=== PATIENT | male | born 1975 | race Caucasian/White ===

== ENCOUNTER 2017-03-25 10:47 | Emergency (ER) | payer OTHER ==
[~2017-03-25] VITALS: Ht 182.9 cm; Wt 79.2 kg
[2017-03-25 10:57] VITALS: TEMP 36.6; Ht 182.9 cm; Wt 79.2 kg
[2017-03-25] MEDS ORDERED: CEFTRIAXONE SOD INJ 1 GM ADDVIAL IV STA (11:16)
[2017-03-25] MEDS ORDERED: CLX40 PO (11:34)
[2017-03-25] MEDS ORDERED: RANI150T3 PO (11:34)
[2017-03-25] MEDS ORDERED: HYDR-5688 PO (11:34)
[2017-03-25] MEDS ORDERED: PRVC/40 PO (11:34)
[2017-03-25] MEDS ORDERED: NAPR-1007 PO (11:34)
[2017-03-25] MEDS ORDERED: ATR25 PO (11:34)
[2017-03-25] MEDS ORDERED: LISI40TA PO (11:34)
[2017-03-25 11:42] LABS: BASO % 0.3 %; BASO ABS # 0.02 K/uL (0-0.2); COMPLETE YES; EOS % 0.7 %; HEMATOCRIT 35.6 % (42-52); LYMPH % 20.9 %; MEAN CORPUSCULAR HEMOGLOBIN 32.5 pg (25-34); MEAN CORPUSCULAR HGB CONC 35.7 g/dl (32-36); MEAN PLATELET VOLUME 7.8 fL (7.4-10.4); MONO % 20.1 %; PLATELET COUNT 112 K/uL (130-400); RED BLOOD COUNT 3.91 M/uL (4.7-6.1); WHITE BLOOD COUNT 7.16 K/uL (4.8-10.8)
[2017-03-25 11:56] LABS: BLOOD UREA NITROGEN 6 mg/dl (7-18); BUN/CREATININE RATIO 11.6 (10-20); CALCIUM 9.3 mg/dl (8.5-10.1); CARBON DIOXIDE 26 mmol/L (21-32); CHLORIDE 91 mmol/L (98-107); CREATININE 0.54 mg/dl (0.60-1.40); GLUCOSE 77 mg/dl (70-99); POTASSIUM 4.4 mmol/L (3.5-5.1); SODIUM 125 mmol/L (136-145)
--- NOTE | 2017-03-25 12:52 | DIAGNOSTIC IMAGING REPORT ---
RIGHT SHOULDER MIN 2 VIEWS ROUTINE HISTORY: 41 years-old Male R shoulder injury 3 wks, R shoulder cellulitis w/ fever Right COMPARISON: None available TECHNIQUE: 3 views of the right shoulder FINDINGS: Mild degenerative changes are seen involving the right AC joint. There is no acute fracture or dislocation. No erosive changes are seen to suggest osteomyelitis. There is moderate soft tissue swelling noted about the shoulder without radiopaque foreign body. Imaged right lung field appears clear. IMPRESSION: 1. No acute fracture or dislocation. 2. Moderate soft tissue swelling about the shoulder. 3. Mild AC joint degenerative change. The above report was generated using voice recognition software. It may contain grammatical, syntax or spelling errors. Electronically signed by: Eliseo Peralta M.D. 03/25/2017 12:51 PM Dictated Date/Time: 03/25/2017 12:49 PM
[2017-03-25 12:55] VITALS: BP 127/88; PULSE 74; O2SAT 96
[2017-03-25 12:57] LABS: LYME DISEASE AB IGG NEG (NEG)
[2017-03-25 13:04] LABS: LYME DISEASE AB IGM NEG (NEG)
[2017-03-25] MEDS ORDERED: CEPH500C PO (13:07)
[2017-03-25] MEDS ORDERED: SULF800T23 PO (13:07)
--- NOTE | 2017-03-25 13:18 | EMERGENCY ROOM VISIT NOTE ---
History First contact with patient: 11:01 Chief Complaint: FEVER Stated Complaint: FEVER,REDNESS,SWELLING TO SHOULDER-WORK REL. History of Present Illness The patient is a 41 year old male who presents to the Emergency Room with complaints of a right shoulder injury at work 3 weeks ago, and creasing pain, redness and fever over the past 12 hours. The patient is not exactly certain of his date of injury. He did not tell his employer of the shoulder pain. He does do a lot of heavy lifting at work. The patient had persistent pain, he was seen by his PCP approximately 2 weeks ago and had an x-ray performed. When his symptoms still did not improve, his Worker's Compensation carrier told him that they would not recognize his family doctor's workup, and that he would need to go to the [facility] urgent care center for evaluation. He was provided a prescription for naproxen, prednisone and hydrocodone. He was then referred to another Worker's Compensation physician with an appointment scheduled this coming Tuesday at 9:30 AM. The patient noticed redness of the shoulder with a fever of 101.1F this morning, and elected to come to the emergency department for further evaluation. He did take hydrocodone this morning because of the pain, and currently rates his discomfort a 5 out of 10. Review of Systems HEENT: Denies dizziness, visual problems, hearing loss, tinnitus. Denies difficulty swallowing or oral lesions. PULMONARY: Denies cough, shortness of breath, sputum production or hemoptysis. CARDIOVASCULAR: Denies chest pain, palpitations, dyspnea on exertion, orthopnea or peripheral edema. GASTROINTESTINAL: Denies diarrhea, constipation, nausea, vomiting, or abdominal pain. GENITOURINARY: Denies dysuria, frequency, urgency or nocturia. NEUROLOGIC: Denies history of epilepsy, CVA, TIA or chronic headaches. MUSCULOSKELETAL: Denies history of joint tenderness/swelling. SKIN: Denies rashes or lesions. PSYCHIATRIC: Denies history of depression or mental illness. ENDOCRINE: Denies history of diabetes or thyroid disorders. Past Medical/Surgical History Medical Problems: (1) No significant past medical history Surgical Problems: (1) No history of previous surgery Family History Unremarkable Social History Smoking Status: Never Smoker Alcohol Use: occasionally Marital Status: Occupation Status: employed Current/Historical Medications Scheduled Cephalexin Monohydrate (Keflex), 500 MG PO QID Citalopram (Citalopram Hydrobromide), 40 MG PO DAILY Lisinopril (Zestril), 40 MG PO DAILY Naproxen Sodium (Naproxen Sodium), 500 MG PO BID Pravastatin Sod (Pravastatin Sodium), 40 MG PO DAILY Ranitidine Hcl (Zantac), 150 MG PO BID Sulfa/Trimethoprim (Bactrim Ds 800MG/160MG), 1 TAB PO BID Scheduled PRN Hydrocodone/Acetaminophen 5MG/325MG ([place] 5MG/325MG), 1 TABLET PO Q4 PRN for Pain Hydroxyzine HCl (Hydroxyzine HCl), 25 MG PO Q6 PRN for Anxiety Physical Exam Vital Signs Date Time Temp Pulse Resp B/P (MAP) Pulse Ox O2 Delivery O2 Flow Rate FiO2 03/25/17 12:55 74 16 127/88 96 Room Air 03/25/17 10:57 36.6 74 16 145/90 97 Room Air Physical Exam CONSTITUTIONAL: Healthy and well nourished. Alert and oriented X 3 with positive affect. The patient appears in moderate discomfort. HEENT: Normocephalic, atraumatic. Pupils equal, round and reactive. NECK: Full active range of motion without discomfort. RESPIRATORY: Clear to auscultation bilaterally with no wheezing, crackles, rhonchi or stridor. CARDIOVASCULAR: Regular rate and rhythm with no murmurs, rubs or gallops. GASTROINTESTINAL: Bowel sounds present in all quadrants. Abdomen is soft and nontender to palpation. MUSCULOSKELETAL: Examination shows erythema and mild edema over the right anterior shoulder/clavicle region. It is notably tender across the distal clavicle and acromioclavicular joint. Gentle internal and external rotation does not significant worsening discomfort. He has no tenderness to palpation through the bicipital groove or biceps tendon. Any attempted range of motion beyond approximately 45 of abduction and forward flexion worsens his discomfort over the distal clavicle region. Distal pulses are intact. LYMPHATICS: No axillary adenopathy appreciated. INTEGUMENTARY: No rash or other significant dermatologic conditions noted. NEUROLOGIC: No focal neurologic deficits noted. Right deltoid sensation is intact. Medical Decision & Procedures ER Provider Diagnostic Interpretation: My interpretation of right shoulder x-rays does not show any acute fractures or dislocation. Radiologist report is as follows: RIGHT SHOULDER MIN 2 VIEWS ROUTINE HISTORY: 41 years-old Male R shoulder injury 3 wks, R shoulder cellulitis w/ fever Right COMPARISON: None available TECHNIQUE: 3 views of the right shoulder FINDINGS: Mild degenerative changes are seen involving the right AC joint. There is no acute fracture or dislocation. No erosive changes are seen to suggest osteomyelitis. There is moderate soft tissue swelling noted about the shoulder without radiopaque foreign body. Imaged right lung field appears clear. IMPRESSION: 1. No acute fracture or dislocation. 2. Moderate soft tissue swelling about the shoulder. 3. Mild AC joint degenerative change. Laboratory Results 03/25/17 11:30 Red Blood Count 3.91, Mean Corpuscular Volume 91.0, Mean Corpuscular Hemoglobin 32.5, Mean Corpuscular Hemoglobin Concent 35.7, Mean Platelet Volume 7.8, Neutrophils (%) (Auto) 56.0, Lymphocytes (%) (Auto) 20.9, Monocytes (%) (Auto) 20.1, Eosinophils (%) (Auto) 0.7, Basophils (%) (Auto) 0.3, Neutrophils # (Auto ) 4.01, Lymphocytes # (Auto) 1.50, Monocytes # (Auto) 1.44, Eosinophils # (Auto ) 0.05, Basophils # (Auto) 0.02 03/25/17 11:30 Test 03/25/17 11:30 White Blood Count 7.16 K/uL (4.8-10.8) Red Blood Count 3.91 M/uL (4.7-6.1) Hemoglobin 12.7 g/dL (14.0-18.0) Hematocrit 35.6 % (42-52) Mean Corpuscular Volume 91.0 fL (80-100) Mean Corpuscular Hemoglobin 32.5 pg (25-34) Mean Corpuscular Hemoglobin Concent 35.7 g/dl (32-36) Platelet Count 112 K/uL (130-400) Mean Platelet Volume 7.8 fL (7.4-10.4) Neutrophils (%) (Auto) 56.0 % Lymphocytes (%) (Auto) 20.9 % Monocytes (%) (Auto) 20.1 % Eosinophils (%) (Auto) 0.7 % Basophils (%) (Auto) 0.3 % Neutrophils # (Auto) 4.01 K/uL (1.4-6.5) Lymphocytes # (Auto) 1.50 K/uL (1.2-3.4) Monocytes # (Auto) 1.44 K/uL (0.11-0.59) Eosinophils # (Auto) 0.05 K/uL (0-0.5) Basophils # (Auto) 0.02 K/uL (0-0.2) RDW Standard Deviation 46.7 fL (36.4-46.3) RDW Coefficient of Variation 14.0 % (11.5-14.5) Immature Granulocyte % (Auto) 2.0 % Immature Granulocyte # (Auto) 0.14 K/uL (0.00-0.02) Erythrocyte Sedimentation Rate 67 mm/hr (0-14) Anion Gap 8.0 mmol/L (3-11) Est Creatinine Clear Calc Drug Dose 199.6 ml/min Estimated GFR () > 150.0 Estimated GFR (Non- 131.3 BUN/Creatinine Ratio 11.6 (10-20) Calcium Level 9.3 mg/dl (8.5-10.1) C-Reactive Protein 17.20 mg/dl (0-0.29) Lyme Disease IgG Antibody NEG (NEG) Lyme Disease IgM Antibody NEG (NEG) The above labs were reviewed. Sedimentation rate and C-reactive protein are elevated. White count is normal. Lyme screen is negative. Sodium is 125. Medications Administered Medications (Trade) Dose Ordered Sig/Oksana Route Start Time Stop Time Status Last Admin Dose Admin Ceftriaxone Sodium (Rocephin Inj) 1 gm NOW STAT IV 03/25/17 11:16 03/25/17 11:18 DC 03/25/17 11:28 1 GM Procedure IV medications: Rocephin 1 g IV infusion ED Course Patient history and physical exam were performed. Nurse's notes were reviewed. Vital signs were reviewed. The patient is currently afebrile and with normal heart rate. Blood pressure is mildly elevated at 145/90, and O2 saturation is 97% on room air. The patient does appear in moderate discomfort, however he refused any analgesics. The patient does have anterior shoulder erythema consistent with a cellulitis. Because he has had a fever, I did suggest performing additional laboratory studies, and the patient was in agreement. IV access was established, and labs were drawn. Review of labs shows hyponatremia with a sodium of 125. Sedimentation rate and CRP are also elevated, and remaining labs are normal. Lyme screen is negative. X-rays of the right shoulder were also normal. The case was further discussed with Dr. Florentino, ED attending physician, who suggested blood cultures and hospitalist consultation. When I discussed this with the patient, he refused admission. He requested oral antibiotics, and will follow-up with his orthopedic surgeon as already scheduled on Tuesday. The patient reports that he has been asked in the past by his family doctor if he drinks a lot of water at work. I suspect that the patient may have a history of chronic hyponatremia. He does admit to significant alcohol consumption as well. The patient was administered Rocephin 1 g IV infusion while in the emergency department. Although the patient is refusing admission, he was instructed to return to the emergency department for any progressively worsening swelling, redness, pain or worsening fever. He was also instructed to follow-up with his PCP regarding his hyponatremia. He was also advised that his blood pressure was elevated while in the emergency department, and encouraged to have his family doctor recheck his blood pressure as well. The patient was happy with plan of care, voiced understanding of all discharge instructions, and rated his pain a 3 out of 10 at the time of discharge. The patient admits that he did take one of his hydrocodone tablets while in the emergency department. Medical Decision See previous section Medication Reconcilliation Current Medication List: was personally reviewed by me Blood Pressure Screening Patient's blood pressure: Elevated blood pressure Blood pressure disposition: Referred to PCP Impression Primary Impression: Right shoulder cellulitis Additional Impressions: Hyponatremia Elevated blood pressure reading Departure Information Prescriptions Sulfa/Trimethoprim (Bactrim Ds 800MG/160MG) Tab 1 TAB PO BID, #14 TAB Prov: Adilson Schwartz PA 03/25/17 Cephalexin Monohydrate (Keflex) 500 Mg Cap 500 MG PO QID for 7 Days, #28 CAP Prov: Adilson Schwartz PA 03/25/17 Referrals No Doctor, Assigned (PCP) Patient Instructions My [facility] Problem Qualifiers
[2017-05-24] MEDS ORDERED: DXY100 PO (17:03)
[2017-05-24] MEDS ORDERED: LPR25 PO (17:03)
[2017-05-24] MEDS ORDERED: NRN600 PO (17:05)
== END 2017-03-25 13:23 | disposition home or self-care (01) ==
LOC: C.EDB 10:50 → C.EDA 13:23
DX: L03.113 Cellulitis of right upper limb (principal); E87.1 Hypo-osmolality and hyponatremia; R03.0 Elevated blood-pressure reading, without diagnosis of hypertension; S49.91XA Unspecified injury of right shoulder and upper arm, initial encounter; X58.XXXA Exposure to other specified factors, initial encounter; Y99.0 Civilian activity done for income or pay

== ENCOUNTER → 2017-05-13 | Outpatient (CLI) | payer BC ==
[~2017-05-13] MED LIST: ATR25 PO; CLX40 PO; DXY100 PO; HYDR-5688 PO; LISI40TA PO; LPR25 PO; MTR600X PO; NAPR-1007 PO; NRN600 PO; OPTIRAY 320 IV PRN; PRVC/40 PO; RANI150T3 PO; SULF800T23 PO
--- NOTE | 2017-05-13 09:13 | DIAGNOSTIC IMAGING REPORT ---
CT OF THE RIGHT SHOULDER WITH CONTRAST CLINICAL HISTORY: Septic arthritis of shoulder. Evaluate for abscess. COMPARISON STUDY: Right shoulder radiographs March 25, 2017. TECHNIQUE: Axial images of the right shoulder were obtained following intravenous injection of 120 cc of Optiray 320 IV. Sagittal and coronal reconstructions were viewed. FINDINGS: Visualized portions of the right lung are clear. There is no significant abnormality of the right glenohumeral joint by CT. Note is made of bony erosion of the distal right clavicle and the adjacent acromion suggestive of osteomyelitis. This has developed since radiographs of March 25, 2017. There is adjacent infiltration. Note is made of a rim-enhancing 2 cm x 1.1 cm fluid collection located anterior superior to the acromioclavicular joint. This is located within the clavicular part of the right deltoid muscle. A small rim-enhancing fluid collection is noted within the acromioclavicular joint as well. There is no evidence for a glenohumeral joint effusion. IMPRESSION: Septic arthritis of the right acromioclavicular joint with osteomyelitis of the distal right clavicle and adjacent acromion. Associated periarticular 2 cm x 1 cm intramuscular abscess within the deltoid muscle, located anterior superior to the acromioclavicular joint. Additional smaller periarticular abscess and small intra-articular abscess. Associated soft tissue swelling. Discussed with Dr. Hernandez at time of dictation. Electronically signed by: Markos Espinosa M.D. 05/13/2017 9:12 AM Dictated Date/Time: 05/13/2017 8:49 AM
== END | disposition home or self-care (01) ==
LOC: C.CTS 08:09
PROVIDERS: ATTEND Internal Medicine Infectious Disease
DX: M86.9 Osteomyelitis, unspecified (principal); L02.413 Cutaneous abscess of right upper limb; M00.811 Arthritis due to other bacteria, right shoulder

== ENCOUNTER 2017-05-19 17:07 | Inpatient (IN) | payer BC ==
[~2017-05-19] VITALS: Ht 182.9 cm; Wt 75.2 kg
[~2017-05-19 17:07] MED LIST changes: -DXY100 PO; -LPR25 PO; -MTR600X PO; -NRN600 PO; -OPTIRAY 320 IV PRN
[2017-05-19] MEDS ORDERED: SODIUM CHLORIDE 0.9% 1000ML 1,000 ML IV STA (18:03)
[2017-05-19] MEDS ORDERED: CEFTRIAXONE SOD INJ 1 GM ADDVIAL IV STA (18:03)
[2017-05-19] MEDS ORDERED: VANCOMYCIN 1GM/270ML NSS IV STA (18:03)
[2017-05-19] MEDS ORDERED: LORAZEPAM 2 MG/ML 1 ML VIAL IV STA (18:19)
--- NOTE | 2017-05-19 18:27 | EMERGENCY ROOM VISIT NOTE ---
History First contact with patient: 17:50 Chief Complaint: WOUND INFECTION Stated Complaint: INFECTED RT SHOULDER- PHYSICIAN REFERRED Nursing Triage Summary: pt has been doctoring with Dr Hernandez for a R shoulder infection for about 2 months, sent to er by Dr Hernandez to have his R shoulder drained, pt states a radiologist is to see him to drain it History of Present Illness The patient is a 41 year old male who presents to the Emergency Room with complaints of right shoulder infection. The patient states that he was sent by Dr. Hernandez to have an abscess in his right shoulder drained. The patient states that he has been dealing with an infection in his right shoulder for approximately 2 months. He had a CT scan done 6 days ago. He states that Dr. Hernandez contacted him and encouraged him to come to the emergency department to have an abscess in his shoulder drained. The patient states he has had ongoing fevers with this. He has pain in the right shoulder which he rates a 1/10. He reports a shoulder injury but denies any injections or any surgery on the shoulder. I discussed the case with Dr. Hernandez. He states that a CT scan from 6 days ago revealed an abscess in the shoulder. He spoke with radiology but they stated it was too superficial for them to do through interventional radiology. He suggested the patient come to the emergency department to have it drained. I reviewed the CT imaging. It is intra-articular and intramuscular. It is not easily visible superficially. He recommends admission to the hospital, vancomycin, Rocephin and consultation with orthopedics. Review of Systems A 10 system review of systems was completed with positives and pertinent negatives listed in the HPI. Past Medical/Surgical History Medical Problems: (1) No significant past medical history Surgical Problems: (1) No history of previous surgery Social History Smoking Status: Never Smoker Alcohol Use: occasionally Marital Status: Occupation Status: employed Current/Historical Medications Scheduled Citalopram (Citalopram Hydrobromide), 40 MG PO DAILY Lisinopril (Zestril), 40 MG PO DAILY Naproxen Sodium (Naproxen Sodium), 500 MG PO BID Pravastatin Sod (Pravastatin Sodium), 40 MG PO DAILY Ranitidine Hcl (Zantac), 150 MG PO BID Sulfa/Trimethoprim (Bactrim Ds 800MG/160MG), 1 TAB PO BID Physical Exam Vital Signs Date Time Temp Pulse Resp B/P (MAP) Pulse Ox O2 Delivery O2 Flow Rate FiO2 05/19/17 17:40 37.6 86 18 157/102 100 Room Air Physical Exam VITALS: Vitals are noted on the nurse's note and reviewed by myself. Vital signs stable. The patient is febrile with a temperature of 37.6C. GENERAL: This is a 41-year-old male, in no acute distress, nondiaphoretic, well- developed well-nourished. SKIN: There is mild erythema overlying the right acromioclavicular joint. There is no tenting of the skin. Capillary reflex less than 2 seconds. HEAD: Normocephalic atraumatic. EARS: The external ears are normal in appearance. EYES: Pupils equal round and reactive to light and accommodation. Conjunctivae without injection, sclerae without icterus. Extraocular movements intact. NOSE: Patent, turbinates without inflammation or discharge. MOUTH: Mucous membranes moist. Tonsils are not enlarged. Pharynx without erythema or exudate. Uvula midline. Airway patent. Tongue does not deviate. NECK: Supple without nuchal rigidity. No JVD. HEART: Regular rate and rhythm without murmurs gallops or rubs. LUNGS: Clear to auscultation bilaterally without wheezes, rales or rhonchi. No retractions or accessory muscle use. MUSCULOSKELETAL: No muscle atrophy,noted. There is minimal tenderness to palpation over the right shoulder joint. Range of motion is intact. Strength 5 /5 throughout. NEURO: Patient was alert and oriented to person place and time. No focal neurological deficits. Medical Decision & Procedures ER Provider Diagnostic Interpretation: [~ rep ct add3]] CT OF THE RIGHT SHOULDER WITH CONTRAST CLINICAL HISTORY: Septic arthritis of shoulder. Evaluate for abscess. COMPARISON STUDY: Right shoulder radiographs March 25, 2017. TECHNIQUE: Axial images of the right shoulder were obtained following intravenous injection of 120 cc of Optiray 320 IV. Sagittal and coronal reconstructions were viewed. FINDINGS: Visualized portions of the right lung are clear. There is no significant abnormality of the right glenohumeral joint by CT. Note is made of bony erosion of the distal right clavicle and the adjacent acromion suggestive of osteomyelitis. This has developed since radiographs of March 25, 2017. There is adjacent infiltration. Note is made of a rim-enhancing 2 cm x 1.1 cm fluid collection located anterior superior to the acromioclavicular joint. This is located within the clavicular part of the right deltoid muscle. A small rim-enhancing fluid collection is noted within the acromioclavicular joint as well. There is no evidence for a glenohumeral joint effusion. IMPRESSION: Septic arthritis of the right acromioclavicular joint with osteomyelitis of the distal right clavicle and adjacent acromion. Associated periarticular 2 cm x 1 cm intramuscular abscess within the deltoid muscle, located anterior superior to the acromioclavicular joint. Additional smaller periarticular abscess and small intra-articular abscess. Associated soft tissue swelling. Discussed with Dr. Hernandez at time of dictation. Laboratory Results 05/19/17 18:20 Red Blood Count 3.92, Mean Corpuscular Volume 90.3, Mean Corpuscular Hemoglobin 32.9, Mean Corpuscular Hemoglobin Concent 36.4, Mean Platelet Volume 8.1, Neutrophils (%) (Auto) 60.4, Lymphocytes (%) (Auto) 21.4, Monocytes (%) (Auto) 14.9, Eosinophils (%) (Auto) 2.1, Basophils (%) (Auto) 0.6, Neutrophils # (Auto ) 2.91, Lymphocytes # (Auto) 1.03, Monocytes # (Auto) 0.72, Eosinophils # (Auto ) 0.10, Basophils # (Auto) 0.03 05/19/17 18:20 Test 05/19/17 18:20 05/19/17 20:02 White Blood Count 4.82 K/uL (4.8-10.8) Red Blood Count 3.92 M/uL (4.7-6.1) Hemoglobin 12.9 g/dL (14.0-18.0) Hematocrit 35.4 % (42-52) Mean Corpuscular Volume 90.3 fL (80-100) Mean Corpuscular Hemoglobin 32.9 pg (25-34) Mean Corpuscular Hemoglobin Concent 36.4 g/dl (32-36) Platelet Count 152 K/uL (130-400) Mean Platelet Volume 8.1 fL (7.4-10.4) Neutrophils (%) (Auto) 60.4 % Lymphocytes (%) (Auto) 21.4 % Monocytes (%) (Auto) 14.9 % Eosinophils (%) (Auto) 2.1 % Basophils (%) (Auto) 0.6 % Neutrophils # (Auto) 2.91 K/uL (1.4-6.5) Lymphocytes # (Auto) 1.03 K/uL (1.2-3.4) Monocytes # (Auto) 0.72 K/uL (0.11-0.59) Eosinophils # (Auto) 0.10 K/uL (0-0.5) Basophils # (Auto) 0.03 K/uL (0-0.2) RDW Standard Deviation 44.8 fL (36.4-46.3) RDW Coefficient of Variation 13.6 % (11.5-14.5) Immature Granulocyte % (Auto) 0.6 % Immature Granulocyte # (Auto) 0.03 K/uL (0.00-0.02) Anion Gap 11.0 mmol/L (3-11) Est Creatinine Clear Calc Drug Dose 135.9 ml/min Estimated GFR () 130.2 Estimated GFR (Non- 112.3 BUN/Creatinine Ratio 8.2 (10-20) Lactic Acid Level 1.6 mmol/L (0.4-2.0) Calcium Level 9.8 mg/dl (8.5-10.1) Total Bilirubin 0.8 mg/dl (0.2-1) Aspartate Amino Transf (AST/SGOT) 52 U/L (15-37) Alanine Aminotransferase (ALT/SGPT) 50 U/L (12-78) Alkaline Phosphatase 60 U/L (45-117) C-Reactive Protein < 0.29 mg/dl (0-0.29) Total Protein 8.8 gm/dl (6.4-8.2) Albumin 4.5 gm/dl (3.4-5.0) Globulin 4.3 gm/dl (2.5-4.0) Albumin/Globulin Ratio 1.0 (0.9-2) Medications Administered Medications (Trade) Dose Ordered Sig/Oksana Route Start Time Stop Time Status Last Admin Dose Admin Ceftriaxone Sodium (Rocephin Inj) 1 gm NOW STAT IV 05/19/17 18:03 05/19/17 18:06 DC 05/19/17 20:12 1 GM Sodium Chloride 1,000 ml @ 999 mls/hr Q1H1M STAT IV 05/19/17 18:03 05/19/17 19:03 DC 05/19/17 19:17 999 MLS/HR Lorazepam (Ativan Inj) 1 mg NOW STAT IV 05/19/17 18:19 05/19/17 18:20 DC 05/19/17 18:36 1 MG Vancomycin HCl (Vancomycin 1gm/ 270ml Nss) 1 gm STK-MED ONCE .ROUTE 05/19/17 20:30 05/19/17 20:31 DC 05/19/17 20:41 1 GM ED Course The patient was seen and examined. Previous visits were reviewed. The patient had a low-grade fever. He does not have a leukocytosis. Sedimentation rate and CRP are pending. Lactic acid was not elevated. Blood cultures are pending. CT imaging that was performed 6 days ago was reviewed as above IV vancomycin and IV Rocephin was initially ordered but held until the aspiration was performed by orthopedics The patient was given 1 mg IV Ativan as he has significant anxiety I initially discussed the case with Dr. Hernandez. He recommends IV antibiotics, vancomycin and Rocephin, aspiration, orthopedic consultation and admission to the hospital. I discussed the case with Dr. cSales. He evaluated the patient in the emergency department. He performed an aspiration. Please see his dictation for details. Cultures were ordered. I discussed the [facility] with the [facility] and they will evaluate the patient for medical admission. The case was discussed with Dr. Burks who agrees with the assessment and treatment plan Medical Decision The differential diagnosis includes septic arthritis, abscess, sepsis, among others Blood Pressure Screening Patient's blood pressure: Elevated blood pressure Blood pressure disposition: Elevated BP felt to be situational Impression Primary Impression: Septic arthritis of AC joint Additional Impression: Abscess of shoulder Departure Information Dispostion Admitted as an inpatient Referrals No Doctor, Assigned (PCP) Forms WORK / SCHOOL INSTRUCTIONS, HOME CARE DOCUMENTATION FORM, IMPORTANT VISIT INFORMATION Patient Instructions [facility] Problem Qualifiers
[2017-05-19 18:47] LABS: BASO % 0.6 %; BASO ABS # 0.03 K/uL (0-0.2); COMPLETE YES; EOS % 2.1 %; HEMATOCRIT 35.4 % (42-52); IG% 0.6 %; LYMPH % 21.4 %; LYMPH ABS # 1.03 K/uL (1.2-3.4); MEAN CELL VOLUME 90.3 fL (80-100); MEAN CORPUSCULAR HEMOGLOBIN 32.9 pg (25-34); MEAN CORPUSCULAR HGB CONC 36.4 g/dl (32-36); MEAN PLATELET VOLUME 8.1 fL (7.4-10.4); MONO % 14.9 %; NEUT % 60.4 %; PLATELET COUNT 152 K/uL (130-400); RED BLOOD COUNT 3.92 M/uL (4.7-6.1); WHITE BLOOD COUNT 4.82 K/uL (4.8-10.8)
[2017-05-19 19:02] LABS: ALT/SGPT 50 U/L (12-78); AST/SGOT 52 U/L (15-37); BLOOD UREA NITROGEN 7 mg/dl (7-18); BUN/CREATININE RATIO 8.2 (10-20); CALCIUM 9.8 mg/dl (8.5-10.1); CARBON DIOXIDE 24 mmol/L (21-32); CHLORIDE 91 mmol/L (98-107); CREATININE 0.79 mg/dl (0.60-1.40); GLUCOSE 78 mg/dl (70-99); POTASSIUM 3.9 mmol/L (3.5-5.1); SODIUM 126 mmol/L (136-145)
[2017-05-19 19:05] LABS: ALKALINE PHOSPHATASE 60 U/L (45-117)
[2017-05-19] MEDS ORDERED: ETHYL CHLORIDE AER PER SPRAY 100 ML CAN ONE (19:29)
[2017-05-19] MEDS ORDERED: VANCOMYCIN 1GM/270ML NSS ONE (20:30)
[2017-05-19 20:35] LABS: C-REACTIVE PROTEIN < 0.29 mg/dl (0-0.29)
[2017-05-19] MEDS ORDERED: MTR600X PO (21:35)
[2017-05-19] MEDS ORDERED: ONDANSETRON INJ 2 MG/ML 2 ML VIAL IV PRN (21:45)
[2017-05-19] MEDS ORDERED: METOPROLOL TARTRATE 50 MG TAB PO STA (21:52)
[2017-05-19] MEDS ORDERED: IBUPROFEN 600 MG TAB PO PRN (22:00)
[2017-05-19] MEDS ORDERED: LORAZEPAM 2 MG/ML 1 ML VIAL IV PRN (22:00)
[2017-05-19] MEDS ORDERED: VANCOMYCIN CONSULT ACTIVE PRN (22:00)
[2017-05-19] MEDS: HEPARIN SOD 5000 UNIT/0.5 ML CARP SQ SCH (22:00)
--- NOTE | 2017-05-19 22:51 | History and Physical ---
History & Physical Date & Time of Service: May 19, 2017 at 22:00 Chief Complaint: Infected Rt Shoulder- Physician Referred Primary Care Physician: Mahamed Becerra M.D. History of Present Illness Source: patient, spouse, clinic records, hospital records This is a 41 y/o male with PMH of HTN, HL, anxiety, alcohol use, hyponatremia, and other problems listed below who presents to the ED for right shoulder infection. 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 No skin puncture/ open wound. Has been seen by PCP (03/16- given prednisone course), [facility] (03/25 after joint became red, hot and swollen - treated with Rocephin injection then PO Bactrim and Keflex course for cellulitis), [facility] (03/28- noted to have severe hyponatremia, blood alcohol of 40, drug screen + for amphetamines), [facility], and Dr. Hernandez (prescribed Bactrim). Patient had a CT scan on Tuesday which showed R shoulder abscess. Pt states erythema and swelling improved with initial antibiotics, but symptoms returned. He is currently taking Bactrim prescribed by Dr. Hernandez with partial improvement. He had fever/chills weeks ago (Tmax 101 F) , but not over past several days. Pain is controlled. Taking ibuprofen PRN at home. He states stool is loose but formed 1-2x per day since being on antibiotics. He felt anxious on presentation to ER which improved with IV Ativan. Patient drinks 6 beers per day. He reports excess water intake which he is trying to cut down on and replace with Gatorade. He is eating well and trying to increase sodium intake. He denies dizziness, tremor, numbness, weakness, chest pain, SOB, abdominal pain, N/V, UTI symptoms. No hx of shoulder surgery. Denies hx of alcohol withdrawal or seizure. Past Medical/Surgical History Medical Problems: (1) ISADORA (generalized anxiety disorder) Status: Chronic (2) GERD (gastroesophageal reflux disease) Status: Chronic (3) HTN (hypertension) Status: Chronic (4) Hyperlipidemia Status: Chronic Surgical Problems: (1) S/P anal fissurectomy Status: Chronic (2) S/P tonsillectomy and adenoidectomy Status: Chronic Family History Hypertension FATHER Social History Smoking Status: Never Smoker Smokeless Tobacco Use: Yes (2 can per day) Alcohol Use: heavy (6 beers per day. last drink was today- had 1 beer [employer]. last drink before that was last night (approx 6 beers). 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 Physical Exam Vital Signs Date Time Temp Pulse Resp B/P (MAP) Pulse Ox O2 Delivery O2 Flow Rate FiO2 05/19/17 17:40 37.6 86 18 157/102 100 Room Air General Appearance: WD/WN, no apparent distress, + pertinent finding (alert cooperative 41 year old male, lying in bed, at bedside) Head: normocephalic, atraumatic Eyes: PERRL, sclerae normal ENT: hearing grossly normal, pharynx normal Neck: supple, trachea midline Respiratory/Chest: lungs clear, normal breath sounds, no respiratory distress, no accessory muscle use Cardiovascular: regular rate, rhythm, no murmur Abdomen/GI: normal bowel sounds, non tender, soft Extremities/Musculoskelatal: no calf tenderness, no pedal edema, + pertinent finding (no pain with passive rotation of R shoulder. R shoulder adduction and abduction 5/5) Neurologic/Psych: alert, normal mood/affect, oriented x 3, + pertinent finding (sensation to light touch grossly intact RUE. no tremor. ) Skin: normal color, warm/dry, + pertinent finding (right shoulder dressing in place s/p joint aspiration. no significant erythema or swelling extending past the dressing. ) Diagnostics Laboratory Results Results Past 24 Hours Test 05/19/17 18:20 05/19/17 21:47 Range/Units White Blood Count 4.82 4.8-10.8 K/uL Red Blood Count 3.92 4.7-6.1 M/uL Hemoglobin 12.9 14.0-18.0 g/dL Hematocrit 35.4 42-52 % Mean Corpuscular Volume 90.3 80-100 fL Mean Corpuscular Hemoglobin 32.9 25-34 pg Mean Corpuscular Hemoglobin Concent 36.4 32-36 g/dl Platelet Count 152 130-400 K/uL Mean Platelet Volume 8.1 7.4-10.4 fL Neutrophils (%) (Auto) 60.4 % Lymphocytes (%) (Auto) 21.4 % Monocytes (%) (Auto) 14.9 % Eosinophils (%) (Auto) 2.1 % Basophils (%) (Auto) 0.6 % Neutrophils # (Auto) 2.91 1.4-6.5 K/uL Lymphocytes # (Auto) 1.03 1.2-3.4 K/uL Monocytes # (Auto) 0.72 0.11-0.59 K/uL Eosinophils # (Auto) 0.10 0-0.5 K/uL Basophils # (Auto) 0.03 0-0.2 K/uL RDW Standard Deviation 44.8 36.4-46.3 fL RDW Coefficient of Variation 13.6 11.5-14.5 % Immature Granulocyte % (Auto) 0.6 % Immature Granulocyte # (Auto) 0.03 0.00-0.02 K/uL Erythrocyte Sedimentation Rate 21 0-14 mm/hr Sodium Level 126 136-145 mmol/L Potassium Level 3.9 3.5-5.1 mmol/L Chloride Level 91 98-107 mmol/L Carbon Dioxide Level 24 21-32 mmol/L Anion Gap 11.0 3-11 mmol/L Blood Urea Nitrogen 7 7-18 mg/dl Creatinine 0.79 0.60-1.40 mg/dl Est Creatinine Clear Calc Drug Dose 135.9 ml/min Estimated GFR () 130.2 Estimated GFR (Non- 112.3 BUN/Creatinine Ratio 8.2 10-20 Random Glucose 78 70-99 mg/dl Lactic Acid Level 1.6 0.4-2.0 mmol/L Calcium Level 9.8 8.5-10.1 mg/dl Total Bilirubin 0.8 0.2-1 mg/dl Aspartate Amino Transf (AST/SGOT) 52 15-37 U/L Alanine Aminotransferase (ALT/SGPT) 50 12-78 U/L Alkaline Phosphatase 60 45-117 U/L C-Reactive Protein < 0.29 0-0.29 mg/dl Total Protein 8.8 6.4-8.2 gm/dl Albumin 4.5 3.4-5.0 gm/dl Globulin 4.3 2.5-4.0 gm/dl Albumin/Globulin Ratio 1.0 0.9-2 Microbiology Results 05/19/17 Blood Culture, Received Pending 05/19/17 Blood Culture, Received Pending 05/19/17 Gram Stain - Final, Resulted 05/19/17 Bacterial Culture, Resulted Pending Diagnostic Radiology OUTPATIENT CT OF THE RIGHT SHOULDER WITH CONTRAST (05/13/17) IMPRESSION: Septic arthritis of the right acromioclavicular joint with osteomyelitis of the distal right clavicle and adjacent acromion. Associated periarticular 2 cm x 1 cm intramuscular abscess within the deltoid muscle, located anterior superior to the acromioclavicular joint. Additional smaller periarticular abscess and small intra-articular abscess. Associated soft tissue swelling. Discussed with Dr. Hernandez at time of dictation. Impression Assessment and Plan 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 Hernandez after CT on 05/13/17 Low grade temp of 37.6 C in ER, no leukocytosis, no sepsis Consult Dr. Hernandez who was contacted by ER provider- recommended joint aspiration , IV vancomycin and Rocephin Consult ortho- Dr. Scales aspirated joint in ER Blood cultures pending; synovial fluid gram stain- moderate polys, no organisms , culture pending Continue Vancomycin and Rocephin started in ER PRN ibuprofen for pain control CHRONIC HYPONATREMIA Na+ is 126 (was low as 119 on 03/28/17 -> 126 on 04/12/17) Likely secondary to beer drinking, excess water intake, and lisinopril Check urine osmolality Hold lisinopril, fluid restriction, received 1 liter NSS in ER Recheck PRP in am HYPERTENSION BP elevated in ER- improved on repeat Hold lisinopril due to hyponatremia Add metoprolol tartrate 25 mg BID ALCOHOL USE Monitor for withdrawal Banana bag and daily thiamine supplement Gabapentin and PRN Ativan per protocol Check thiamine, folic acid, urine drug screen LOOSE STOOLS Reports loose but formed stools 1-2x per day since being on antibiotics If develops liquid stool would test for C. diff ANXIETY Continue citalopram HYPERLIPIDEMIA Continue statin GERD Continue Zantac DVT PROPHYLAXIS Heparin SQ for ease of holding in case ortho procedure is needed FULL CODE DISPOSITION Admission telemetry due to hyponatremia, anticipating possible alcohol withdrawal Follows with Dr. Becerra for primary care Patient seen in collaboration with Dr. Rios. Please see his addendum. VTE Prophylaxis VTE Risk Assessment Done? Y/N: Yes Risk Level: Moderate Given or contraindicated: Unfractionated heparin SQ Note ATTENDING ADDENDUM Record reviewed. Patient interviewed and examined in ED. Care coordinated with Elizabeth Crenshaw PA-C. Please refer to her documentation for patient's history. Briefly, 41 YO male with right shoulder pain. CT 05/13 consistent with septic arthritis right acromioclavicular joint, osteomyelitis right distal clavicle, periarticular abscesses. EXAM: General- no acute distress VS- as noted Extremities- mild swelling / tenderness right anterior shoulder Neuro- alert DATA: Lab studies as noted. ASSESSMENT AND PLAN: Apparent septic arthritis AC joint with osteomyelitis of distal clavicle and periarticular abscesses per CT. Ortho consulted. Aspirate of AC joint performed. Started on IV vancomycin and ceftriaxone pending culture results. Consult ID. Drinks about 6 beers a day. Alcohol withdrawal prophylaxis utilizing gabapentin protocol. Hyponatremic- Na 126. May be from beer drinking. Check U osm. Fluid restriction. Sodium-liberal diet. Follow. Please refer to HOLA Crenshaw's documentation for discussion of other issues. Malvin Rios MD .
[2017-05-19 22:57] LABS: PARTIAL THROMBOPLASTIN RATIO 1.3; PROTHROMBIN TIME (PATIENT) 10.8 SECONDS (9.0-12.0)
[2017-05-19 23:00] VITALS: BP 150/80; PULSE 76; TEMP 36.8; O2SAT 97; Ht 182.9 cm; Wt 75.2 kg
[2017-05-19] MEDS ORDERED: MULTI-VITAMIN INFUSION INJ 10 ML, THIAMINE HCL INJ 100 MG, FoLIC ACID INJ 1 MG in SODIU... IV ONE (23:00)
[2017-05-19] MEDS ORDERED: GABAPENTIN 600 MG TAB PO STA (23:02)
[2017-05-19] MEDS: METOPROLOL TARTRATE 25 MG TAB PO SCH ×2 (23:24→23:26)
--- NOTE | 2017-05-19 23:39 | ORTHOPEDIC CONSULTATION ---
DATE OF CONSULTATION: 05/19/2017 HISTORY OF PRESENT ILLNESS: The patient is a 41-year-old male who has a history of cellulitis of his shoulder and possible infection of his AC joint. He has had a CAT scan done which suggested that he has cystic change around the AC joint and fluid collection. Small fluid collection anterior superior to the AC joint and deltoid area. This is possible osteomyelitis. He was admitted to the hospital and placed on vancomycin and Rocephin per infectious disease. He was on Bactrim. PAST MEDICAL HISTORY: Has been healthy. No surgery history. SOCIAL HISTORY: Nonsmoker. He is . MEDICATIONS: Takes citalopram 40 mg daily, lisinopril 40 mg daily, naproxen 500 mg b.i.d., pravastatin 40 mg daily, Zantac 150 mg p.o. b.i.d. and Bactrim 1 tablet p.o. b.i.d. His history is that he had 2 months of pain. He had several opinions about his AC joint condition. He says the only thing that seemed to be helping is the antibiotics. I did see a photograph his presented to me with some redness around his shoulder which would be more consistent with cellulitis. At this time, he has no erythema or redness. He said he originally had some fevers, but he has not had any fevers recently. His radiographs reviewed demonstrate he has [id number] in his AC joint with end-stage AC joint osteoarthritis. His CT scan demonstrates some cystic changes inside the AC joint which could be a sign of osteoarthritis. Radiologist told it would be more consistent with osteomyelitis. He did have a small 2 cm fluid collection in deltoid muscle. His physical exam demonstrates that he has no pain in the glenohumeral joint. He has full range of motion of shoulder. He has normal strength and he does have some tenderness of the AC joint. There is a small area of fluctuance anterior to the AC joint as suggested by fluid collection noted per CAT scan. The shoulder was sterilely prepped with Betadine. I did place an 18 gauge needle into the area of suspected abscess but did not aspirate any pus from this area. I did place the needle into the AC joint and able to withdraw some bloody fluid from the AC joint and that surrounding area. We did express some bloody fluid out of this area after the needle was removed as well. We did send the fluid for culture and sensitivity. ASSESSMENT: Possible osteomyelitis of the acromioclavicular joint, I think this be a rare condition. 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 At this time, his most recent blood parameters, normal white count and normal temperature; so was not specifically infected. I discussed with him that if he does not respond to medical treatment then an open acromioclavicular joint debridement with distal clavicle excision would be indicated. A distal clavicle excision will be helpful to him anyway because he has end-stage osteoarthritis there. KALPESH
[2017-05-19] MEDS ORDERED: INFLUENZA VIRUS QUAD VACCINE 0.5 ML SYR IM. ONE (23:45)
[2017-05-19] MEDS ORDERED: INFLUENZA ADMINISTRATION CHARGE ONE (23:45)
[2017-05-20] VITALS (7 sets, daily range): BP systolic 128–149; BP diastolic 72–91; PULSE 61–86; TEMP 36.6–37.1; O2SAT 97–99
[2017-05-20 00:41] LABS: BENZODIAZEPINE, URINE NEG (NEG); COCAINE,URINE NEG (NEG); PHENCYCLIDINE, URINE NEG (NEG)
[2017-05-20] MEDS ORDERED: LORAZEPAM 1 MG TAB PO STA (02:19)
[2017-05-20] MEDS: VANCOMYCIN INJ 1,250 MG in SODIUM CHLORIDE 0.9% 250ML 250 ML IV SCH ×3 (03:40→20:32)
[2017-05-20] MEDS: HEPARIN SOD 5000 UNIT/0.5 ML CARP SQ SCH ×3 (05:45→19:23)
[2017-05-20] MEDS: GABAPENTIN 600MG Q6H DOSE PO SCH ×2 (05:46→11:35)
[2017-05-20 06:49] LABS: HEMATOCRIT 33.7 % (42-52); MEAN CELL VOLUME 93.4 fL (80-100); MEAN CORPUSCULAR HEMOGLOBIN 32.1 pg (25-34); MEAN CORPUSCULAR HGB CONC 34.4 g/dl (32-36); MEAN PLATELET VOLUME 7.8 fL (7.4-10.4); PLATELET COUNT 123 K/uL (130-400); RED BLOOD COUNT 3.61 M/uL (4.7-6.1); WHITE BLOOD COUNT 3.93 K/uL (4.8-10.8)
[2017-05-20 07:21] LABS: CALCIUM 8.8 mg/dl (8.5-10.1); CREATININE 0.61 mg/dl (0.60-1.40); POTASSIUM 3.8 mmol/L (3.5-5.1)
[2017-05-20] MEDS: RANITIDINE HCL 150 MG TAB PO SCH ×2 (08:31→19:38)
[2017-05-20] MEDS: THIAMINE HCL 100 MG TAB PO SCH (08:31)
[2017-05-20] MEDS: CITALOPRAM 40 MG TAB PO SCH (08:31)
[2017-05-20] MEDS: METOPROLOL TARTRATE 25 MG TAB PO SCH ×2 (09:17→19:39)
--- NOTE | 2017-05-20 09:42 | Progress Note ---
Medicine Progress Note Date & Time of Visit: May 20, 2017 at 09:35. Subjective patient seen resting in bed, comfortable states he feels fine overall "except for my shoulder infection that is not healing" denies shoulder pain fever/chills, nausea/vomiting denies anxiety, sweating, tremors no other symptoms Objective Last 8 Hrs Date Time Temp Pulse Resp B/P (MAP) Pulse Ox O2 Delivery O2 Flow Rate FiO2 05/20/17 09:16 73 137/82 (100) 05/20/17 08:44 Room Air 05/20/17 08:21 84 147/84 (105) 05/20/17 07:34 37.1 86 18 149/88 (108) 97 Room Air 05/20/17 04:00 Room Air 05/20/17 04:00 36.8 61 18 146/85 (105) 98 Room Air Physical Exam: General- oriented x 3, not in distress, speaks in sentences with no effort Head- atraumatic Eyes- EOMI, anicteric ENT- oropharynx clear Neck- supple, no JVD, no adenopathy, no thyromegaly Lungs- clear breath sounds bilaterally Heart- regular rhythm; no murmur, no murmurs Abdomen- normal bowel sounds, soft, nontender Extremities- no pretibial edema, no calf tenderness; peripheral pulses intact Right shoulder: mild edema, but no warmth/tenderness Neuro- alert, oriented x 3; no gross focal neuro deficits Skin- warm & dry Laboratory Results: Last 24 Hours Test 05/19/17 18:20 05/19/17 22:36 05/20/17 00:00 05/20/17 06:31 White Blood Count 4.82 K/uL 3.93 K/uL Red Blood Count 3.92 M/uL 3.61 M/uL Hemoglobin 12.9 g/dL 11.6 g/dL Hematocrit 35.4 % 33.7 % Mean Corpuscular Volume 90.3 fL 93.4 fL Mean Corpuscular Hemoglobin 32.9 pg 32.1 pg Mean Corpuscular Hemoglobin Concent 36.4 g/dl 34.4 g/dl Platelet Count 152 K/uL 123 K/uL Mean Platelet Volume 8.1 fL 7.8 fL Neutrophils (%) (Auto) 60.4 % Lymphocytes (%) (Auto) 21.4 % Monocytes (%) (Auto) 14.9 % Eosinophils (%) (Auto) 2.1 % Basophils (%) (Auto) 0.6 % Neutrophils # (Auto) 2.91 K/uL Lymphocytes # (Auto) 1.03 K/uL Monocytes # (Auto) 0.72 K/uL Eosinophils # (Auto) 0.10 K/uL Basophils # (Auto) 0.03 K/uL RDW Standard Deviation 44.8 fL 46.7 fL RDW Coefficient of Variation 13.6 % 13.6 % Immature Granulocyte % (Auto) 0.6 % Immature Granulocyte # (Auto) 0.03 K/uL Erythrocyte Sedimentation Rate 21 mm/hr Sodium Level 126 mmol/L 132 mmol/L Potassium Level 3.9 mmol/L 3.8 mmol/L Chloride Level 91 mmol/L 99 mmol/L Carbon Dioxide Level 24 mmol/L 25 mmol/L Anion Gap 11.0 mmol/L 8.0 mmol/L Blood Urea Nitrogen 7 mg/dl 6 mg/dl Creatinine 0.79 mg/dl 0.61 mg/dl Est Creatinine Clear Calc Drug Dose 135.9 ml/min 172.1 ml/min Estimated GFR () 130.2 144.8 Estimated GFR (Non- 112.3 124.9 BUN/Creatinine Ratio 8.2 9.0 Random Glucose 78 mg/dl 92 mg/dl Lactic Acid Level 1.6 mmol/L Calcium Level 9.8 mg/dl 8.8 mg/dl Total Bilirubin 0.8 mg/dl Aspartate Amino Transf (AST/SGOT) 52 U/L Alanine Aminotransferase (ALT/SGPT) 50 U/L Alkaline Phosphatase 60 U/L C-Reactive Protein < 0.29 mg/dl Total Protein 8.8 gm/dl Albumin 4.5 gm/dl Globulin 4.3 gm/dl Albumin/Globulin Ratio 1.0 Prothrombin Time 10.8 SECONDS Prothromb Time International Ratio 1.0 Activated Partial Thromboplast Time 33.2 SECONDS Partial Thromboplastin Ratio 1.3 Vitamin B12 Level 300 pg/mL Folate 9.33 ng/mL Urine Osmolality 221 mOms/kg Urine Opiates Screen NEG Urine Methadone, Qualitative NEG Urine Barbiturates NEG Urine Phencyclidine (PCP) Level NEG Ur Amphetamine/Methamphetamine NEG MDMA (Ecstasy) Screen NEG Urine Benzodiazepines Screen NEG Urine Cocaine Metabolite NEG Urine Marijuana (THC) NEG Date/Time Source Procedure Growth Status 05/19/17 18:35 Blood Blood Culture Pending Received 05/19/17 18:20 Blood Blood Culture Pending Received 05/19/17 19:55 Joint Fluid/Space (Synovial) Shoulder, Right Gram Stain - Final Resulted 05/19/17 19:55 Joint Fluid/Space (Synovial) Shoulder, Right Bacterial Culture Pending Resulted Assessment & Plan 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 Hernandez after CT on 05/13/17 Low grade temp of 37.6 C in ER, no leukocytosis, no sepsis Consult Dr. Hernandez who was contacted by ER provider- recommended joint aspiration , IV vancomycin and Rocephin Consult ortho- Dr. Scales aspirated joint in ER Blood cultures pending; synovial fluid gram stain- moderate polys, no organisms , culture pending -- afebrile, no leukocytosis shoulder aspirate cultures: pending -- on Vanc + Ceftri da 2 awaiting ID recommendations Ortho SVC recommends antibiotics first, and proceed with surgery if with no improvement CHRONIC HYPONATREMIA Na+ is 126 (was low as 119 on 03/28/17 -> 126 on 04/12/17) Likely secondary to beer drinking, excess water intake, and lisinopril -- Urine Osm 221 , low -- Na improved to 132 HOLD lisinopril fluid restriction -- monitor Na HYPERTENSION BP elevated in ER- improved on repeat Hold lisinopril due to hyponatremia -- metoprolol tartrate 25 mg BID ALCOHOL USE Monitor for withdrawal Banana bag and daily thiamine supplement Gabapentin and PRN Ativan per protocol -- monitor LOOSE STOOLS Reports loose but formed stools 1-2x per day since being on antibiotics -- no diarrhea today -- will start Floranex ANXIETY Continue citalopram HYPERLIPIDEMIA Continue statin GERD Continue Zantac DVT PROPHYLAXIS Heparin SQ for ease of holding in case ortho procedure is needed FULL CODE DISPOSITION Admission telemetry due to hyponatremia, anticipating possible alcohol withdrawal Follows with Dr. Becerra for primary care Current Inpatient Medications: Current Inpatient Medications Medications (Trade) Dose Ordered Sig/Oksana Route Start Time Stop Time Status Last Admin Dose Admin Heparin Sodium (Porcine) (Heparin Sq 5000 Unit/0.5ml) 5,000 unit Q8 SQ 05/19/17 22:00 06/18/17 21:59 Ondansetron HCl (Zofran Inj) 4 mg Q6H PRN IV 05/19/17 21:45 06/18/17 21:44 Metoprolol Tartrate (Lopressor Tab) 25 mg BID PO 05/20/17 09:00 06/19/17 08:59 05/20/17 09:17 25 MG Thiamine HCl (Vitamin B-1 Tab) 100 mg QAM PO 05/20/17 09:00 06/19/17 08:59 05/20/17 08:31 100 MG Lorazepam (Ativan Inj) 1 mg ONE PRN IV 05/19/17 22:00 Vancomycin HCl (Consult) 1 ea UD PRN N/A 05/19/17 22:00 06/18/17 21:59 Ceftriaxone Sodium 1 gm/ Dextrose 50 ml @ 100 mls/hr Q24H IV 05/20/17 20:00 07/01/17 19:59 Citalopram Hydrobromide (celeXA TAB) 40 mg DAILY PO 05/20/17 09:00 06/19/17 08:59 05/20/17 08:31 40 MG Ibuprofen (Motrin Tab) 600 mg TID PRN PO 05/19/17 22:00 06/18/17 21:59 Pravastatin Sodium (Pravachol Tab) 40 mg HS PO 05/20/17 21:00 06/19/17 20:59 Ranitidine HCl (zANTac TAB) 150 mg BID PO 05/20/17 09:00 06/19/17 08:59 05/20/17 08:31 150 MG Vancomycin HCl 1250 mg/Sodium Chloride 275 ml @ 125 mls/hr Q8H IV 05/20/17 04:00 06/30/17 21:59 05/20/17 03:40 125 MLS/HR Gabapentin (Neurontin Tab) 600 mg Q6H PO 05/20/17 06:00 05/20/17 12:01 05/20/17 05:46 600 MG Gabapentin (Neurontin Tab) 600 mg Q8H PO 05/20/17 20:00 05/21/17 12:01 Gabapentin (Neurontin Tab) 600 mg Q12H PO 05/22/17 00:00 05/22/17 12:01 Gabapentin (Neurontin Tab) 600 mg Q24H PO 05/23/17 12:00 05/23/17 12:01
--- NOTE | 2017-05-20 10:35 | Progress Note ---
Progress Note Date of Service May 20, 2017. Progress Note ID Consult Dictated #[id number] A/P: 1. Clavicular Osteomyelitis with abscess 2. Septic arthritis right AC joint -Continue IV abx for now, await aspirate culture, may be negative due to prolonged outpatient abx with Bactrim -Await surgery recs -Thank you
--- NOTE | 2017-05-20 10:41 | INFECT. DISEASE CONSULTATION ---
DATE OF CONSULTATION: 05/20/2017 DATE OF CONSULTATION: 05/20/2017 REQUESTING PHYSICIAN: Dr. Rios. HISTORY OF PRESENT ILLNESS: This is a 41-year-old gentleman who was admitted to the hospital after worsening right shoulder pain and infection. He did undergo aspiration in the ER with minimal fluid. There were no organisms seen on Gram stain. Cultures are pending as well as blood cultures. He does have a white blood cell count of 3.9 and a sed rate which is mildly elevated at 21. He did have a T-max of 37.6 last night but otherwise states he has been afebrile. He was started empirically on vancomycin and Rocephin. He has seen Dr. Hernandez in the outpatient office for some time and has been on Bactrim for what he states is a minimum of 6 weeks. He states he has been doing well on antibiotics. He does have a history of pain and erythema as well as swelling of the right shoulder. He denies any trauma to the area. He denies any open wounds or any purulent drainage. He states that he has been trialed on and off of antibiotics and when he is on oral antibiotics his symptoms resolve; however, when he is taken off of antibiotics they return. He did have a CAT scan done last week as an outpatient which did show AC joint and clavicular osteomyelitis with a 2 x 1 cm abscess in the deltoid area. He has been to multiple orthopedic surgeons to discuss surgical intervention; however, that has been deferred secondary to suspected ongoing infection. He does not have any previous micro here. He is currently tolerating antibiotics. He states that he does not have any pain at this time. He denies any nausea, vomiting or diarrhea. He has been tolerating Bactrim well. He does have a history of alcohol use. His urine drug screen in the ER yesterday was negative. He is ambulating in the room without difficulty on my exam. All remaining review of systems are reviewed and unremarkable. PAST MEDICAL HISTORY: Significant for anxiety, GERD, hypertension and high cholesterol. PAST SURGICAL HISTORY: Significant for tonsillectomy, adenoidectomy and anal fissure repair. FAMILY HISTORY: Noncontributory. SOCIAL HISTORY: Negative for tobacco use. He does chew tobacco; however, he does have a history of heavy alcohol use. He denies any drug use; however, reportedly from the H&P, he has had positive urine drug screen in the past for methamphetamine. His urine drug screen on this admission was unremarkable. ALLERGIES: He has no known drug allergies. CURRENT MEDICATIONS: Include Neurontin, Pravachol, Rocephin, Floranex, Lopressor, vitamin B, Celexa, Zantac, vancomycin, subQ heparin, Ativan, Motrin and Zofran. PHYSICAL EXAMINATION: VITAL SIGNS: He is afebrile, pulse 73, respiratory rate 18, blood pressure 137/82, oxygen saturation is 97% on room air. GENERAL: He is awake, alert and oriented x3 on my exam. He is in no acute distress. HEAD, EYES, EARS, NOSE, AND THROAT: Mucous membranes are moist. Extraocular muscles are intact. HEART: Regular, without tachycardia or murmur. LUNGS: Clear bilaterally. ABDOMEN: Soft. There is no lower extremity edema. SKIN: Without rash. Examination of the right shoulder does not reveal any erythema or induration. Dressing from aspiration in the ER last night is clean, dry and intact. There is no purulent drainage or bleeding. There is no tenderness to palpation. He has full range of motion of his right upper extremity. LABORATORY STUDIES: CBC today reveals a white blood cell count of 3.9, hemoglobin 11.6, platelets are 123, sed rate is 21. Chemistry panel reveals a sodium of 132, potassium 3.8, chloride 99, bicarb 25, BUN 6, creatinine 0.6, glucose is 92. showed a mild elevation of AST at 52, ALT was 50. CRP was less than 0.29. UDS was negative. Blood cultures are pending. Aspiration culture is pending. There are moderate white blood cells but no organisms seen. CT of the upper extremity is as above. Clavicular osteomyelitis with small abscess and septic arthritis. He continues on IV antibiotics. He is being followed by orthopedic surgery. Cultures are pending. He will continue on empiric antibiotics pending the results of that. Discussion regarding additional surgery is pending regarding culture results. Thank you for this consultation. KALPESH
[2017-05-20] MEDS: LACTOBACILLUS ACIDOPHILUS (FLORANEX) TAB PO SCH ×2 (11:48→17:52)
[2017-05-20] MEDS ORDERED: NURSING VERBAL MED ORDER ONE (13:45)
[2017-05-20] MEDS ORDERED: LORAZEPAM 0.5 MG TAB ONE (13:48)
[2017-05-20] MEDS: LORAZEPAM 0.5 MG TAB PO PRN ×2 (13:50→20:32)
--- NOTE | 2017-05-20 14:38 | Pharmacy Progress Note ---
Pharmacy Abx Initial Consult Date of Service May 20, 2017. Pharmacy Dosing Scope Date of Consult: 05/19/17 Consultation requested by: Dr. Crenshaw Pharmacy is consulted to initiate Vancomycin IV dosing therapy for septic joint , order appropriate labs and adjust drug dose/frequency. Subjective The patient is a 41 year old male admitted on May 19, 2017 at 21:42. Objective Height (Feet): 6 Height (Inches): 0 Weight (Kilograms): 75.600 Vital Signs (Past 12Hrs) Vital Signs Past 12 Hours Date Time Temp Pulse Resp B/P (MAP) Pulse Ox O2 Delivery O2 Flow Rate FiO2 05/20/17 12:00 Room Air 05/20/17 11:52 36.8 65 18 136/80 (98) 99 Room Air 05/20/17 09:16 73 137/82 (100) 05/20/17 08:44 Room Air 05/20/17 08:21 84 147/84 (105) 05/20/17 07:34 37.1 86 18 149/88 (108) 97 Room Air 05/20/17 04:00 Room Air 05/20/17 04:00 36.8 61 18 146/85 (105) 98 Room Air Lab Results (24Hrs) Laboratory Tests (24 Hours) Test 05/19/17 18:20 05/20/17 06:31 C-Reactive Protein < 0.29 mg/dl (0-0.29) Erythrocyte Sedimentation Rate 21 mm/hr (0-14) H Lactic Acid Level 1.6 mmol/L (0.4-2.0) White Blood Count 4.82 K/uL (4.8-10.8) 3.93 K/uL (4.8-10.8) L Red Blood Count 3.92 M/uL (4.7-6.1) L Hemoglobin 12.9 g/dL (14.0-18.0) L Hematocrit 35.4 % (42-52) L Mean Corpuscular Volume 90.3 fL (80-100) Mean Corpuscular Hemoglobin 32.9 pg (25-34) Mean Corpuscular Hemoglobin Concent 36.4 g/dl (32-36) H Platelet Count 152 K/uL (130-400) Mean Platelet Volume 8.1 fL (7.4-10.4) Neutrophils (%) (Auto) 60.4 % Lymphocytes (%) (Auto) 21.4 % Monocytes (%) (Auto) 14.9 % Eosinophils (%) (Auto) 2.1 % Basophils (%) (Auto) 0.6 % Neutrophils # (Auto) 2.91 K/uL (1.4-6.5) Lymphocytes # (Auto) 1.03 K/uL (1.2-3.4) L Monocytes # (Auto) 0.72 K/uL (0.11-0.59) H Eosinophils # (Auto) 0.10 K/uL (0-0.5) Basophils # (Auto) 0.03 K/uL (0-0.2) Micro Results Date/Time Source Procedure Growth Status 05/19/17 18:35 Blood Blood Culture Pending Received 05/19/17 18:20 Blood Blood Culture Pending Received 05/19/17 19:55 Joint Fluid/Space (Synovial) Shoulder, Right Gram Stain - Final Resulted 05/19/17 19:55 Joint Fluid/Space (Synovial) Shoulder, Right Bacterial Culture Pending Resulted Risk Factors for Resistance * Antimicrobial use within the last 90 days: * Rocephin 1gm IV (03/25/17) * PO Bactrim [unknown dose] (started 03/25/17) * PO Keflex [unknown dose] (started 03/25/17) * PO Bactrim [unknown dose] started 05/13/[address] Hernandez Assessment & Plan Assessment 41 year old male * Came to [facility] ER 03/25 after joint became red, hot and swollen- treated with Rocephin injection then PO Bactrim and Keflex course for cellulitis * 05/13/17- Patient had a CT scan which showed R shoulder abscess. Pt states erythema and swelling improved with initial antibiotics, but symptoms returned. He is currently taking Bactrim prescribed by Dr. Hernandez with partial improvement Plan Pharmacy has been consulted for treatment of septic joint Vancomycin IV * Loading dose: 1000 mg (13 mg/kg) x 1 dose in the ED * Maintenance dose: 1250 mg IV (16 mg/kg) every 8 hours * Estimated P'kinetic levels: ke= 0.0874/hr, t1/2= 8 hrs * Goal trough level for septic joint : 15 to 20 mcg/mL * Trough level ordered for 05/21/17 ~30 minutes before the 4th maintenance dose Pharmacy will continue to follow and will adjust dose/frequency as necessary. Thank you.
[2017-05-20] MEDS: GABAPENTIN 600MG Q8H DOSE PO SCH (19:39)
[2017-05-20] MEDS: PRAVASTATIN SOD 40 MG TAB PO SCH (19:39)
[2017-05-20] MEDS: CEFTRIAXONE SOD INJ 1 GM in DEXTROSE 5% ADD-VANTAGE 50ML 50 ML IV SCH (19:39)
[2017-05-21] VITALS (11 sets, daily range): BP systolic 120–162; BP diastolic 70–90; PULSE 16–82; TEMP 36.3–37.1; O2SAT 96–100
[2017-05-21] MEDS ORDERED: VANCOMYCIN TROUGH SCH (03:30)
[2017-05-21 03:47] LABS: BASO % 0.6 %; BASO ABS # 0.03 K/uL (0-0.2); COMPLETE YES; EOS % 3.4 %; IG% 0.4 %; LYMPH ABS # 1.36 K/uL (1.2-3.4); MEAN CELL VOLUME 94.5 fL (80-100); MEAN CORPUSCULAR HEMOGLOBIN 31.8 pg (25-34); MEAN CORPUSCULAR HGB CONC 33.6 g/dl (32-36); MEAN PLATELET VOLUME 8.2 fL (7.4-10.4); MONO % 16.3 %; NEUT % 52.3 %; PLATELET COUNT 146 K/uL (130-400); RED BLOOD COUNT 3.81 M/uL (4.7-6.1); WHITE BLOOD COUNT 5.03 K/uL (4.8-10.8)
[2017-05-21] MEDS: VANCOMYCIN INJ 1,250 MG in SODIUM CHLORIDE 0.9% 250ML 250 ML IV SCH (03:52)
[2017-05-21 04:12] LABS: BUN/CREATININE RATIO 8.4 (10-20); CREATININE 0.65 mg/dl (0.60-1.40); POTASSIUM 3.9 mmol/L (3.5-5.1)
[2017-05-21] MEDS ORDERED: LORAZEPAM 2 MG/ML 1 ML VIAL IV PRN ×2 (04:30→14:45)
[2017-05-21] MEDS ORDERED: LORAZEPAM 1MG IV AT RISK PROTOCOL PHA IV PRN (04:30)
[2017-05-21] MEDS ORDERED: LORAZEPAM INJ 1 MG in SYRINGE 0.5 ML IV PRN ×3 (04:30→18:45)
[2017-05-21] MEDS: GABAPENTIN 600MG Q8H DOSE PO SCH (04:34)
[2017-05-21] MEDS: HEPARIN SOD 5000 UNIT/0.5 ML CARP SQ SCH (04:38)
[2017-05-21] MEDS ORDERED: THIAMINE HCL INJ 100 MG in SYRINGE 9 ML IV SCH (08:00)
--- NOTE | 2017-05-21 08:09 | Progress Note ---
Medicine Progress Note Date & Time of Visit: May 21, 2017 at 08:09. Subjective examined in AM around 8am: patient seen sitting at bedside chair, oriented x 2, answers most questions appropriately calm , cooperative states he feels fine denies sweating, tremors, anxiety denies shoulder pain no other symptoms noted re-examined at lunch: still calm ,cooperative, appropriate not in distress Objective Last 8 Hrs Date Time Temp Pulse Resp B/P (MAP) Pulse Ox O2 Delivery O2 Flow Rate FiO2 05/21/17 06:58 36.8 72 18 155/86 (109) 96 05/21/17 05:06 36.7 58 20 152/89 (110) 99 Room Air 05/21/17 04:00 Room Air 05/21/17 00:13 37.1 61 16 147/90 (109) 98 Room Air Physical Exam: General- oriented x 2, not in distress, speaks in sentences with no effort Eyes-anicteric Neck- no JVD Lungs- clear breath sounds bilaterally, no rales/wheezes Heart- regular rhythm; no murmur, no murmurs Abdomen- normal bowel sounds, soft, nontender Extremities- (+) tremors; no pretibial edema, no calf tenderness; peripheral pulses intact Right shoulder: mild edema, but no warmth/tenderness Neuro- alert, oriented x 3; no gross focal neuro deficits Skin- warm & dry Laboratory Results: Last 24 Hours Test 05/21/17 03:36 05/21/17 08:03 White Blood Count 5.03 K/uL Red Blood Count 3.81 M/uL Hemoglobin 12.1 g/dL Hematocrit 36.0 % Mean Corpuscular Volume 94.5 fL Mean Corpuscular Hemoglobin 31.8 pg Mean Corpuscular Hemoglobin Concent 33.6 g/dl Platelet Count 146 K/uL Mean Platelet Volume 8.2 fL Neutrophils (%) (Auto) 52.3 % Lymphocytes (%) (Auto) 27.0 % Monocytes (%) (Auto) 16.3 % Eosinophils (%) (Auto) 3.4 % Basophils (%) (Auto) 0.6 % Neutrophils # (Auto) 2.63 K/uL Lymphocytes # (Auto) 1.36 K/uL Monocytes # (Auto) 0.82 K/uL Eosinophils # (Auto) 0.17 K/uL Basophils # (Auto) 0.03 K/uL RDW Standard Deviation 47.2 fL RDW Coefficient of Variation 13.6 % Immature Granulocyte % (Auto) 0.4 % Immature Granulocyte # (Auto) 0.02 K/uL Sodium Level 133 mmol/L Potassium Level 3.9 mmol/L Chloride Level 100 mmol/L Carbon Dioxide Level 26 mmol/L Anion Gap 7.0 mmol/L Blood Urea Nitrogen 5 mg/dl Creatinine 0.65 mg/dl Est Creatinine Clear Calc Drug Dose 161.5 ml/min Estimated GFR () 141.0 Estimated GFR (Non- 121.7 BUN/Creatinine Ratio 8.4 Random Glucose 93 mg/dl Calcium Level 9.0 mg/dl Vancomycin Level Trough 14.4 mcg/ml Assessment & Plan 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 Hernandez after CT on 05/13/17 Low grade temp of 37.6 C in ER, no leukocytosis, no sepsis Consult Dr. Hernandez who was contacted by ER provider- recommended joint aspiration , IV vancomycin and Rocephin Consult ortho- Dr. Scales aspirated joint in ER Blood cultures pending; synovial fluid gram stain- moderate polys, no organisms , culture pending -- remains afebrile, no leukocytosis shoulder aspirate cultures: negative so far blood cultures: negative so far -- on Vanc + Ceftri day 3 awaiting ID recommendations [place] [facility] [place] antibiotics first, and proceed with surgery if with no improvement ALCOHOL USE -- in AM, Gabapentin changed to Librium as patient was exhibiting signs of confusion, tremors added PRN ativan for anxiety symptoms -- reevaluated around 5pm as entry level staff accountant noticing more confusion -- patient examined, sitting on chair, not oriented x 3, tries to answer some questions when i left the room to put orders, patient became more confused, combative towards staff, took out IV site code bronson called, patient given Haldol 5mg IM and Ativan 4mg, had to be restrained as patient was being very combative, agitated, restless patient was able to be restrained, but still trying to get out of bed, another IV Ativan 4mg ordered case discussed with Psych Liaison Naila, who coordinated care with Psychiatrist Dr. Tuttle Gabapentin TID , PRN Haldol , PRN Ativan ordered per discussion with them patient transferred to Tele, seen sleeping, comfortable case discussed with patient's and she is understanding and agreeable with plan of care, consent for HIV testing for blood exposure of staff obtained from as patient was sedated case discussed with RN at Tele CHRONIC HYPONATREMIA Na+ is 126 (was low as 119 on 03/28/17 -> 126 on 04/12/17) Likely secondary to beer drinking, excess water intake, and lisinopril -- Urine Osm 221 , low -- Na improved to 133 HOLD lisinopril on IV fluids for possible alcohol withdrawal -- monitor Na HYPERTENSION Hold lisinopril due to hyponatremia -- metoprolol tartrate 25 mg BID -- PRN Clonidine LOOSE STOOLS Reports loose but formed stools 1-2x per day since being on antibiotics -- no diarrhea today -- started Floranex ANXIETY Continue citalopram HYPERLIPIDEMIA Continue statin GERD Continue Zantac DVT PROPHYLAXIS Heparin SQ held for alcohol withdrawal FULL CODE DISPOSITION Tele monitoring Follows with Dr. Becerra for primary care Current Inpatient Medications: Current Inpatient Medications Medications (Trade) Dose Ordered Sig/Oksana Route Start Time Stop Time Status Last Admin Dose Admin Heparin Sodium (Porcine) (Heparin Sq 5000 Unit/0.5ml) 5,000 unit Q8 SQ 05/19/17 22:00 06/18/17 21:59 Ondansetron HCl (Zofran Inj) 4 mg Q6H PRN IV 05/19/17 21:45 06/18/17 21:44 Metoprolol Tartrate (Lopressor Tab) 25 mg BID PO 05/20/17 09:00 06/19/17 08:59 05/20/17 19:39 25 MG Thiamine HCl (Vitamin B-1 Tab) 100 mg QAM PO 05/20/17 09:00 06/19/17 08:59 05/20/17 08:31 100 MG Vancomycin HCl (Consult) 1 ea UD PRN N/A 05/19/17 22:00 06/18/17 21:59 Ceftriaxone Sodium 1 gm/ Dextrose 50 ml @ 100 mls/hr Q24H IV 05/20/17 20:00 07/01/17 19:59 05/20/17 19:39 100 MLS/HR Citalopram Hydrobromide (celeXA TAB) 40 mg DAILY PO 05/20/17 09:00 06/19/17 08:59 05/20/17 08:31 40 MG Ibuprofen (Motrin Tab) 600 mg TID PRN PO 05/19/17 22:00 06/18/17 21:59 Pravastatin Sodium (Pravachol Tab) 40 mg HS PO 05/20/17 21:00 06/19/17 20:59 05/20/17 19:39 40 MG Ranitidine HCl (zANTac TAB) 150 mg BID PO 05/20/17 09:00 06/19/17 08:59 05/20/17 19:38 150 MG Vancomycin HCl 1250 mg/Sodium Chloride 275 ml @ 125 mls/hr Q8H IV 05/20/17 04:00 06/30/17 21:59 05/21/17 03:52 125 MLS/HR Gabapentin (Neurontin Tab) 600 mg Q8H PO 05/20/17 20:00 05/21/17 12:01 05/21/17 04:34 600 MG Gabapentin (Neurontin Tab) 600 mg Q12H PO 05/22/17 00:00 05/22/17 12:01 Gabapentin (Neurontin Tab) 600 mg Q24H PO 05/23/17 12:00 05/23/17 12:01 Lactobacillus Acidophilus (Floranex Tab) 4 tab TIDM PO 05/20/17 12:00 06/19/17 11:59 05/20/17 17:52 4 TAB Lorazepam (Ativan Tab) 0.5 mg Q4H PRN PO 05/20/17 14:00 06/19/17 13:59 05/20/17 20:32 0.5 MG Thiamine HCl 100 mg/Syringe 10 ml @ 2 mls/min Q24H IV 05/21/17 08:00 06/20/17 07:59 UNV Lorazepam (Ativan Inj) PRN Dosing -Active Protocol Q1H PRN IV 05/21/17 07:45 06/20/17 07:44
[2017-05-21] MEDS ORDERED: CHLORDIAZEPOXIDE 25 MG CAP PO SCH (08:15)
[2017-05-21] MEDS ORDERED: MULTI-VITAMIN INFUSION INJ 10 ML, THIAMINE HCL INJ 100 MG, FoLIC ACID INJ 1 MG in SODIU... IV ONE (08:30)
[2017-05-21] MEDS: RANITIDINE HCL 150 MG TAB PO SCH ×2 (08:39→21:00)
[2017-05-21] MEDS: LACTOBACILLUS ACIDOPHILUS (FLORANEX) TAB PO SCH ×3 (08:39→16:36)
[2017-05-21] MEDS: THIAMINE HCL 100 MG TAB PO SCH (08:39)
[2017-05-21] MEDS: CITALOPRAM 40 MG TAB PO SCH (08:39)
[2017-05-21] MEDS: METOPROLOL TARTRATE 25 MG TAB PO SCH ×2 (08:39→21:00)
--- NOTE | 2017-05-21 08:59 | Pharmacy Progress Note ---
Pharmacy Antibiotic Prog Note Date of Service May 21, 2017. Subjective The patient is currently receiving vancomycin 1250 mg iv q 8 hrs and rocephin 1 gm iv q 24 hrs for septic joint infection The patient is currently on day # 3 of IV therapy. Objective Height (Feet): 6 Height (Inches): 0 Weight (Kilograms): 74.500 Levels: Item Value Date Time Vancomycin Level Trough 14.4 mcg/ml 05/21/17 0336 Lab Results (24hrs): Test 05/21/17 03:36 05/21/17 08:03 White Blood Count 5.03 K/uL (4.8-10.8) Red Blood Count 3.81 M/uL (4.7-6.1) Hemoglobin 12.1 g/dL (14.0-18.0) Hematocrit 36.0 % (42-52) Mean Corpuscular Volume 94.5 fL (80-100) Mean Corpuscular Hemoglobin 31.8 pg (25-34) Mean Corpuscular Hemoglobin Concent 33.6 g/dl (32-36) Platelet Count 146 K/uL (130-400) Mean Platelet Volume 8.2 fL (7.4-10.4) Neutrophils (%) (Auto) 52.3 % Lymphocytes (%) (Auto) 27.0 % Monocytes (%) (Auto) 16.3 % Eosinophils (%) (Auto) 3.4 % Basophils (%) (Auto) 0.6 % Neutrophils # (Auto) 2.63 K/uL (1.4-6.5) Lymphocytes # (Auto) 1.36 K/uL (1.2-3.4) Monocytes # (Auto) 0.82 K/uL (0.11-0.59) Eosinophils # (Auto) 0.17 K/uL (0-0.5) Basophils # (Auto) 0.03 K/uL (0-0.2) RDW Standard Deviation 47.2 fL (36.4-46.3) RDW Coefficient of Variation 13.6 % (11.5-14.5) Immature Granulocyte % (Auto) 0.4 % Immature Granulocyte # (Auto) 0.02 K/uL (0.00-0.02) Sodium Level 133 mmol/L (136-145) Potassium Level 3.9 mmol/L (3.5-5.1) Chloride Level 100 mmol/L (98-107) Carbon Dioxide Level 26 mmol/L (21-32) Anion Gap 7.0 mmol/L (3-11) Blood Urea Nitrogen 5 mg/dl (7-18) Creatinine 0.65 mg/dl (0.60-1.40) Est Creatinine Clear Calc Drug Dose 161.5 ml/min Estimated GFR () 141.0 Estimated GFR (Non- 121.7 BUN/Creatinine Ratio 8.4 (10-20) Random Glucose 93 mg/dl (70-99) Calcium Level 9.0 mg/dl (8.5-10.1) Vancomycin Level Trough 14.4 mcg/ml (SEE COMMENT) Micro Results: Item Value Date Time Gram Stain - Final Resulted 05/19/171954 Joint Fluid/Space (Synovial) Shoulder, Right Blood Culture - Preliminary Resulted 05/19/17 1835 Blood NO GROWTH TO DATE. Blood Culture - Preliminary Resulted 05/19/17 1820 Blood NO GROWTH TO DATE. 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 ID is following the patient. Vancomycin: * Trough level this am was slightly subtherapeutic at ~14.4 mcg/ml (goal 15-20 mcg/ml) * Will increase dose to vancomycin 1500 mg iv q 8 hrs to achieve a higher trough * Will plan to recheck a trough prior to the 0400 dose on 05/23 to ensure therapeutic Pharmacy will continue to follow and will adjust dose/frequency as necessary. Thank you
[2017-05-21] MEDS: CHLORDIAZEPOXIDE 50MG 1ST DOSE PO SCH ×3 (09:24→22:31)
--- NOTE | 2017-05-21 09:26 | Orthopedic Progress Note ---
Orthopedic Progress Note Date of Service May 21, 2017. Subjective Reports: feeling well Objective Right shoulder looks benign, minimally irritable to ROM Date Time Temp Pulse Resp B/P (MAP) Pulse Ox O2 Delivery O2 Flow Rate FiO2 05/21/17 08:37 36.6 67 132/83 (99) 05/21/17 06:58 36.8 72 18 155/86 (109) 96 05/21/17 05:06 36.7 58 20 152/89 (110) 99 Room Air 05/21/17 04:00 Room Air 05/21/17 00:13 37.1 61 16 147/90 (109) 98 Room Air 05/21/17 00:00 Room Air 05/20/17 20:00 Room Air 05/20/17 19:34 36.6 69 20 137/91 (106) 99 Room Air 05/20/17 16:00 Room Air 05/20/17 14:53 37.0 74 16 128/72 (90) 99 Room Air 05/20/17 12:00 Room Air 05/20/17 11:52 36.8 65 18 136/80 (98) 99 Room Air Laboratory Results 24 Hours: Test 05/21/17 03:36 White Blood Count 5.03 K/uL Red Blood Count 3.81 M/uL Hemoglobin 12.1 g/dL Hematocrit 36.0 % Mean Corpuscular Volume 94.5 fL Mean Corpuscular Hemoglobin 31.8 pg Mean Corpuscular Hemoglobin Concent 33.6 g/dl Platelet Count 146 K/uL Mean Platelet Volume 8.2 fL Neutrophils (%) (Auto) 52.3 % Lymphocytes (%) (Auto) 27.0 % Monocytes (%) (Auto) 16.3 % Eosinophils (%) (Auto) 3.4 % Basophils (%) (Auto) 0.6 % Neutrophils # (Auto) 2.63 K/uL Lymphocytes # (Auto) 1.36 K/uL Monocytes # (Auto) 0.82 K/uL Eosinophils # (Auto) 0.17 K/uL Basophils # (Auto) 0.03 K/uL Assessment & Plan Assessment: 41 yo male with resolving right shoulder cellulitis, AC joint aspiration negative for deep infection Plan: Med management- cont IV abx Ortho to sign off unless recurrence or change in symptoms
[2017-05-21] MEDS: LORAZEPAM 0.5 MG TAB PO PRN (10:49)
[2017-05-21] MEDS ORDERED: NURSING VERBAL MED ORDER ONE ×3 (11:30→17:30)
[2017-05-21] MEDS ORDERED: CLONIDINE HCL 0.1 MG TAB PO PRN (11:30)
[2017-05-21] MEDS: VANCOMYCIN INJ 1,500 MG in SODIUM CHLORIDE 0.9% 500ML 500 ML IV SCH ×2 (11:57→23:37)
[2017-05-21] MEDS ORDERED: NICOTINE 14 MG/24 HR TDSY TD ONE (12:00)
--- NOTE | 2017-05-21 13:17 | Orthopedic Progress Note ---
Orthopedic Progress Note Date of Service May 21, 2017. Subjective Denies: chest pain, SOB, nausea / vomiting, light headedness Additional Notes: Right shoulder/AC joint pain improved. + anxiousness and tremulousness. Admits to drinking 15-20 beers per day at home. Objective calves soft nontender, N/V intact, capillary refill less than 2 sec., A&O x3 + Anxiety and tremulousness. No fevers. + Minimally tender to palpation right shoulder and AC joint. No erythema right shoulder/AC joint. AROM/PROM intact R UE. DNVSI. present at bedside. Date Time Temp Pulse Resp B/P (MAP) Pulse Ox O2 Delivery O2 Flow Rate FiO2 05/21/17 12:00 36.3 62 18 125/78 (94) 99 Room Air 05/21/17 10:44 36.6 63 18 162/90 (114) 96 Room Air 05/21/17 08:37 36.6 67 132/83 (99) 05/21/17 08:00 Room Air 05/21/17 06:58 36.8 72 18 155/86 (109) 96 05/21/17 05:06 36.7 58 20 152/89 (110) 99 Room Air 05/21/17 04:00 Room Air 05/21/17 00:13 37.1 61 16 147/90 (109) 98 Room Air 05/21/17 00:00 Room Air 05/20/17 20:00 Room Air 05/20/17 19:34 36.6 69 20 137/91 (106) 99 Room Air 05/20/17 16:00 Room Air 05/20/17 14:53 37.0 74 16 128/72 (90) 99 Room Air Laboratory Results 24 Hours: Test 05/21/17 03:36 White Blood Count 5.03 K/uL Red Blood Count 3.81 M/uL Hemoglobin 12.1 g/dL Hematocrit 36.0 % Mean Corpuscular Volume 94.5 fL Mean Corpuscular Hemoglobin 31.8 pg Mean Corpuscular Hemoglobin Concent 33.6 g/dl Platelet Count 146 K/uL Mean Platelet Volume 8.2 fL Neutrophils (%) (Auto) 52.3 % Lymphocytes (%) (Auto) 27.0 % Monocytes (%) (Auto) 16.3 % Eosinophils (%) (Auto) 3.4 % Basophils (%) (Auto) 0.6 % Neutrophils # (Auto) 2.63 K/uL Lymphocytes # (Auto) 1.36 K/uL Monocytes # (Auto) 0.82 K/uL Eosinophils # (Auto) 0.17 K/uL Basophils # (Auto) 0.03 K/uL Assessment & Plan Assessment: 41 yo male with resolving right shoulder/AC joint cellulitis, AC joint aspiration negative culture for deep infection Alcoholism-notified medical service to reevaluate for increased pharmacological coverage Plan: Med management- cont IV abx Ortho to sign off Notified Med service about reevaluation for prophylaxis of DTs
[2017-05-21] MEDS: LORAZEPAM 2 MG/ML 1 ML VIAL IV PRN ×3 (16:36→22:40)
[2017-05-21] MEDS ORDERED: LORAZEPAM 2 MG/ML 1 ML VIAL IV ONE (17:30)
[2017-05-21] MEDS ORDERED: HALOPERIDOL LACTATE 5 MG/ML 1 ML VIAL IM STA ×3 (18:11→18:21)
[2017-05-21] MEDS ORDERED: HALOPERIDOL LACTATE 5 MG/ML 1 ML VIAL ONE (18:11)
[2017-05-21] MEDS ORDERED: LORAZEPAM INJ 2 MG in SYRINGE 1 ML IV STA ×2 (18:30→18:49)
[2017-05-21] MEDS ORDERED: HALOPERIDOL LACTATE 5 MG/ML 1 ML VIAL IM PRN (18:30)
[2017-05-21] MEDS ORDERED: LORAZEPAM IV STA (19:14)
[2017-05-21] MEDS: NSS + 20MEQ KCL 1000ML 1,000 ML IV SCH (19:31)
[2017-05-21] MEDS: PRAVASTATIN SOD 40 MG TAB PO SCH (21:00)
[2017-05-21] MEDS: CEFTRIAXONE SOD INJ 1 GM in DEXTROSE 5% ADD-VANTAGE 50ML 50 ML IV SCH (21:06)
[2017-05-21] MEDS: GABAPENTIN 600 MG TAB PO SCH (22:30)
[2017-05-22] VITALS (9 sets, daily range): BP systolic 118–161; BP diastolic 76–100; PULSE 55–76; TEMP 36.3–36.7; O2SAT 96–100
[2017-05-22] MEDS ORDERED: GABAPENTIN 600MG Q12H DOSE PO SCH
[2017-05-22] MEDS: VANCOMYCIN INJ 1,500 MG in SODIUM CHLORIDE 0.9% 500ML 500 ML IV SCH ×3 (03:43→20:51)
[2017-05-22] MEDS: CHLORDIAZEPOXIDE 50MG 1ST DOSE PO SCH (03:43)
[2017-05-22] MEDS: LORAZEPAM 2 MG/ML 1 ML VIAL IV PRN ×5 (05:03→23:47)
[2017-05-22 06:37] LABS: BASO % 0.5 %; BASO ABS # 0.02 K/uL (0-0.2); COMPLETE YES; HEMATOCRIT 36.6 % (42-52); IG% 0.5 %; LYMPH % 23.3 %; LYMPH ABS # 0.94 K/uL (1.2-3.4); MEAN CELL VOLUME 94.8 fL (80-100); MEAN CORPUSCULAR HEMOGLOBIN 32.4 pg (25-34); MEAN CORPUSCULAR HGB CONC 34.2 g/dl (32-36); MEAN PLATELET VOLUME 7.7 fL (7.4-10.4); MONO % 16.6 %; NEUT % 56.1 %; PLATELET COUNT 115 K/uL (130-400); RED BLOOD COUNT 3.86 M/uL (4.7-6.1); WHITE BLOOD COUNT 4.04 K/uL (4.8-10.8)
[2017-05-22 07:05] LABS: BUN/CREATININE RATIO 5.7 (10-20); CALCIUM 8.7 mg/dl (8.5-10.1); CREATININE 0.61 mg/dl (0.60-1.40); POTASSIUM 3.9 mmol/L (3.5-5.1)
[2017-05-22] MEDS ORDERED: THIAMINE HCL 100 MG TAB PO SCH (08:00)
--- NOTE | 2017-05-22 08:44 | Progress Note ---
Medicine Progress Note Date & Time of Visit: May 22, 2017 at 08:44. Subjective initially seen sleeping not in distress then when patient was having breakfast, oriented x2 poor recollection of last night's events denies headache, chest pain, dyspnea, hallucinations no shoulder pain no other symptoms Objective Last 8 Hrs Date Time Temp Pulse Resp B/P (MAP) Pulse Ox O2 Delivery O2 Flow Rate FiO2 05/22/17 07:32 36.5 62 18 159/98 (118) 100 Room Air 05/22/17 04:23 96 Room Air 05/22/17 04:05 36.3 56 18 118/80 (93) 98 Room Air Physical Exam: General- oriented x 2, not in distress, speaks in sentences with no effort Eyes-anicteric Neck- no JVD Lungs- clear breath sounds BL, no rales/wheezes Heart- regular rhythm; no murmur, normal rate Abdomen- normal bowel sounds, soft, nontender Extremities- (+) tremors; no pretibial edema, no calf tenderness; peripheral pulses intact Right shoulder: mild edema, but no warmth/tenderness Neuro- alert, oriented x 3; no gross focal neuro deficits Skin- warm & dry Laboratory Results: Last 24 Hours Test 05/22/17 06:19 White Blood Count 4.04 K/uL Red Blood Count 3.86 M/uL Hemoglobin 12.5 g/dL Hematocrit 36.6 % Mean Corpuscular Volume 94.8 fL Mean Corpuscular Hemoglobin 32.4 pg Mean Corpuscular Hemoglobin Concent 34.2 g/dl Platelet Count 115 K/uL Mean Platelet Volume 7.7 fL Neutrophils (%) (Auto) 56.1 % Lymphocytes (%) (Auto) 23.3 % Monocytes (%) (Auto) 16.6 % Eosinophils (%) (Auto) 3.0 % Basophils (%) (Auto) 0.5 % Neutrophils # (Auto) 2.27 K/uL Lymphocytes # (Auto) 0.94 K/uL Monocytes # (Auto) 0.67 K/uL Eosinophils # (Auto) 0.12 K/uL Basophils # (Auto) 0.02 K/uL RDW Standard Deviation 46.9 fL RDW Coefficient of Variation 13.7 % Immature Granulocyte % (Auto) 0.5 % Immature Granulocyte # (Auto) 0.02 K/uL Sodium Level 138 mmol/L Potassium Level 3.9 mmol/L Chloride Level 107 mmol/L Carbon Dioxide Level 25 mmol/L Anion Gap 6.0 mmol/L Blood Urea Nitrogen 3 mg/dl Creatinine 0.61 mg/dl Est Creatinine Clear Calc Drug Dose 173.5 ml/min Estimated GFR () 144.8 Estimated GFR (Non- 124.9 BUN/Creatinine Ratio 5.7 Random Glucose 84 mg/dl Calcium Level 8.7 mg/dl Assessment & Plan 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 Hernandez after CT on 05/13/17 Low grade temp of 37.6 C in ER, no leukocytosis, no sepsis Consult Dr. Hernandez who was contacted by ER provider- recommended joint aspiration , IV vancomycin and Rocephin Consult ortho- Dr. Scales aspirated joint in ER Blood cultures pending; synovial fluid gram stain- moderate polys, no organisms , culture pending -- remains afebrile, no leukocytosis shoulder aspirate cultures: negative so far blood cultures: negative so far -- on Vanc + Ceftri day 4 awaiting ID recommendations Ortho [facility] [place] recommends antibiotics first, and proceed with surgery if with no improvemen -- will likely need IV antibiotics when discharged ALCOHOL WITHDRAWALS/DELIRIUM TREMENS -- improved this morning oriented x 2, although occasionally confused still having tremors -- Lorazepam PRN per protocol Gabapentin TID Haldol PRN IV fluids -- Psych consulted CHRONIC HYPONATREMIA Na+ is 126 (was low as 119 on 03/28/17 -> 126 on 04/12/17) Likely secondary to beer drinking, excess water intake, and lisinopril -- Urine Osm 221 , low -- Na 138 HOLD lisinopril on IV fluids for possible alcohol withdrawal--> repeat Na at noon HYPERTENSION Hold lisinopril due to hyponatremia -- metoprolol tartrate 25 mg BID -- PRN Clonidine LOOSE STOOLS Reports loose but formed stools 1-2x per day since being on antibiotics -- no diarrhea -- started Floranex ANXIETY Continue citalopram HYPERLIPIDEMIA Continue statin GERD Continue Zantac DVT PROPHYLAXIS Heparin SQ held for alcohol withdrawal FULL CODE DISPOSITION Tele monitoring Follows with Dr. Becerra for primary care Current Inpatient Medications: Current Inpatient Medications Medications (Trade) Dose Ordered Sig/Oksana Route Start Time Stop Time Status Last Admin Dose Admin Ondansetron HCl (Zofran Inj) 4 mg Q6H PRN IV 05/19/17 21:45 06/18/17 21:44 Metoprolol Tartrate (Lopressor Tab) 25 mg BID PO 05/20/17 09:00 06/19/17 08:59 05/21/17 08:39 25 MG Thiamine HCl (Vitamin B-1 Tab) 100 mg QAM PO 05/20/17 09:00 06/19/17 08:59 05/21/17 08:39 100 MG Vancomycin HCl (Consult) 1 ea UD PRN N/A 05/19/17 22:00 06/18/17 21:59 Ceftriaxone Sodium 1 gm/ Dextrose 50 ml @ 100 mls/hr Q24H IV 05/20/17 20:00 07/01/17 19:59 05/21/17 21:06 100 MLS/HR Citalopram Hydrobromide (celeXA TAB) 40 mg DAILY PO 05/20/17 09:00 06/19/17 08:59 05/21/17 08:39 40 MG Ibuprofen (Motrin Tab) 600 mg TID PRN PO 05/19/17 22:00 06/18/17 21:59 Pravastatin Sodium (Pravachol Tab) 40 mg HS PO 05/20/17 21:00 06/19/17 20:59 05/20/17 19:39 40 MG Ranitidine HCl (zANTac TAB) 150 mg BID PO 05/20/17 09:00 06/19/17 08:59 05/21/17 08:39 150 MG Lactobacillus Acidophilus (Floranex Tab) 4 tab TIDM PO 05/20/17 12:00 06/19/17 11:59 05/21/17 16:36 4 TAB Lorazepam (Ativan Inj) PRN Dosing -Active Protocol Q1H PRN IV 05/21/17 07:45 06/20/17 07:44 05/22/17 05:03 1 MG Potassium Chloride/Sodium Chloride 1,000 ml @ 75 mls/hr [id number] IV 05/21/17 19:00 06/20/17 18:59 05/21/17 19:31 125 MLS/HR Chlordiazepoxide (Librium Cap) 50 mg Q8H PO 05/22/17 14:00 05/23/17 06:01 Chlordiazepoxide (Librium Cap) 25 mg Q8H PO 05/23/17 14:00 05/24/17 06:01 Chlordiazepoxide (Librium Cap) 10 mg Q12H PO 05/24/17 18:00 05/25/17 06:01 Vancomycin HCl 1500 mg/Sodium Chloride 530 ml @ 200 mls/hr Q8H IV 05/21/17 12:00 06/30/17 11:59 05/22/17 03:43 200 MLS/HR Nicotine (Nicoderm Cq 14MG Patch) 1 patch QAM TD 05/22/17 09:00 06/21/17 08:59 Miscellaneous (Remove Nicoderm Patch) 1 ea HS N/A 05/21/17 21:00 06/20/17 20:59 05/21/17 21:06 1 EA Clonidine HCl (Catapres Tab) 0.1 mg Q6H PRN PO 05/21/17 11:30 06/20/17 11:29 Haloperidol Lactate (Haldol Inj) 5 mg Q6H PRN IM 05/21/17 18:30 06/20/17 18:29 Gabapentin (Neurontin Tab) 600 mg TID PO 05/21/17 19:30 06/20/17 19:29 05/21/17 22:30 600 MG Lorazepam 1 mg/ Syringe 1 ml @ 1 mls/min Q2H PRN IV 05/22/17 08:45 06/20/17 14:29 UNV
[2017-05-22] MEDS ORDERED: LORAZEPAM INJ 1 MG in SYRINGE 0.5 ML IV PRN (08:45)
[2017-05-22] MEDS: LACTOBACILLUS ACIDOPHILUS (FLORANEX) TAB PO SCH ×3 (08:48→16:45)
[2017-05-22] MEDS: THIAMINE HCL 100 MG TAB PO SCH (08:49)
[2017-05-22] MEDS: METOPROLOL TARTRATE 25 MG TAB PO SCH ×2 (08:49→20:52)
[2017-05-22] MEDS: GABAPENTIN 600 MG TAB PO SCH ×3 (08:49→20:53)
[2017-05-22] MEDS: CITALOPRAM 40 MG TAB PO SCH (08:49)
[2017-05-22] MEDS: RANITIDINE HCL 150 MG TAB PO SCH ×2 (08:50→20:54)
[2017-05-22] MEDS: NICOTINE 14 MG/24 HR TDSY TD SCH (08:50)
[2017-05-22] MEDS: NSS + 20MEQ KCL 1000ML 1,000 ML IV SCH ×2 (11:22→23:55)
[2017-05-22 11:52] LABS: BLOOD UREA NITROGEN 3 mg/dl (7-18); BUN/CREATININE RATIO 6.2 (10-20); CALCIUM 8.7 mg/dl (8.5-10.1); CARBON DIOXIDE 24 mmol/L (21-32); CHLORIDE 106 mmol/L (98-107); CREATININE 0.53 mg/dl (0.60-1.40); GLUCOSE 90 mg/dl (70-99); POTASSIUM 3.7 mmol/L (3.5-5.1); SODIUM 138 mmol/L (136-145)
--- NOTE | 2017-05-22 12:26 | Psychiatric Consultation ---
Psychiatric Consultation Date of Service: May 22, 2017. Pt asleep not easy to arouse, Spoke to his nurse and reviewed record. Pt tremulous at times and obtaining Ativan as pre protocol with improvement after doses. hard to arouse from sleep at times, but his primary nurse about to check in with him at times and is denying AH/VH to nursing and with some waxing and weaning to his attention/concentration and thought process per nurse. No reported disrupted agitated behaviors since transfer to current room. Paty, psych consult liaison nurse aiming to get collateral from . 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
[2017-05-22] MEDS: CHLORDIAZEPOXIDE 50MG Q8H DOSE PO SCH ×3 (14:00→20:51)
[2017-05-22 19:09] LABS: BUN/CREATININE RATIO 2.2 (10-20); CALCIUM 8.4 mg/dl (8.5-10.1); CREATININE 0.99 mg/dl (0.60-1.40); POTASSIUM 3.7 mmol/L (3.5-5.1)
[2017-05-22] MEDS: CEFTRIAXONE SOD INJ 1 GM in DEXTROSE 5% ADD-VANTAGE 50ML 50 ML IV SCH (20:50)
[2017-05-22] MEDS: PRAVASTATIN SOD 40 MG TAB PO SCH (20:54)
[2017-05-23] VITALS (8 sets, daily range): BP systolic 142–170; BP diastolic 87–95; PULSE 55–82; TEMP 36.3–36.9; O2SAT 94–100
[2017-05-23] MEDS ORDERED: VANCOMYCIN TROUGH ONE (03:30)
[2017-05-23 03:56] LABS: BASO % 0.6 %; BASO ABS # 0.03 K/uL (0-0.2); COMPLETE YES; EOS % 3.9 %; HEMATOCRIT 36.3 % (42-52); IG% 0.4 %; LYMPH % 26.4 %; LYMPH ABS # 1.34 K/uL (1.2-3.4); MEAN CELL VOLUME 95.3 fL (80-100); MEAN CORPUSCULAR HEMOGLOBIN 31.5 pg (25-34); MEAN CORPUSCULAR HGB CONC 33.1 g/dl (32-36); MEAN PLATELET VOLUME 8.5 fL (7.4-10.4); MONO % 18.5 %; NEUT % 50.2 %; PLATELET COUNT 138 K/uL (130-400); RED BLOOD COUNT 3.81 M/uL (4.7-6.1); WHITE BLOOD COUNT 5.08 K/uL (4.8-10.8)
[2017-05-23] MEDS: VANCOMYCIN INJ 1,500 MG in SODIUM CHLORIDE 0.9% 500ML 500 ML IV SCH (04:07)
[2017-05-23 04:20] LABS: BUN/CREATININE RATIO 7.7 (10-20); CALCIUM 8.8 mg/dl (8.5-10.1); CREATININE 0.68 mg/dl (0.60-1.40); POTASSIUM 3.9 mmol/L (3.5-5.1)
[2017-05-23] MEDS: CHLORDIAZEPOXIDE 50MG Q8H DOSE PO SCH (05:47)
[2017-05-23] MEDS: NICOTINE 14 MG/24 HR TDSY TD SCH (08:21)
[2017-05-23] MEDS: RANITIDINE HCL 150 MG TAB PO SCH ×2 (08:22→19:43)
[2017-05-23] MEDS: LACTOBACILLUS ACIDOPHILUS (FLORANEX) TAB PO SCH ×3 (08:22→16:38)
[2017-05-23] MEDS: METOPROLOL TARTRATE 25 MG TAB PO SCH ×2 (08:22→19:43)
[2017-05-23] MEDS: THIAMINE HCL 100 MG TAB PO SCH (08:22)
[2017-05-23] MEDS: CITALOPRAM 40 MG TAB PO SCH (08:22)
[2017-05-23] MEDS: GABAPENTIN 600 MG TAB PO SCH ×3 (08:22→19:43)
--- NOTE | 2017-05-23 10:41 | Progress Note ---
Subjective Date of Service: May 23, 2017. Subjective Pt evaluation today including: conversation w/ patient, physical exam, chart review, lab review Pt seen in followup. asking to go home. No f/c. culture growing MSSA, remains on IV abx. vanco d/c. Had withdrawal over weekend, psych involved. No pain in shoulder. tolerating abx. All remaining ros reviewed and are negative. Problem List Medical Problems: (1) Abscess of shoulder Status: Acute (2) Elevated blood pressure reading Status: Acute (3) Hyponatremia Status: Acute (4) Septic arthritis of AC joint Status: Acute Objective Vital Signs Date Time Temp Pulse Resp B/P (MAP) Pulse Ox O2 Delivery O2 Flow Rate FiO2 05/23/17 08:00 Room Air 05/23/17 07:02 36.6 55 20 161/92 (115) 100 Room Air 05/23/17 04:20 100 Room Air 05/23/17 03:36 36.9 82 18 162/91 (114) 94 Room Air 05/23/17 00:00 100 Room Air 05/22/17 23:22 36.7 76 16 159/90 (113) 100 Room Air 05/22/17 20:00 100 Room Air 05/22/17 18:58 36.5 75 18 161/100 (120) 100 Room Air 05/22/17 16:00 Room Air 05/22/17 14:50 36.7 55 18 158/91 (113) 100 Room Air 05/22/17 12:00 Room Air 05/22/17 11:09 36.7 60 18 126/76 (93) 96 Room Air Physical Exam General Appearance: WD/WN, no apparent distress Eyes: normal inspection, PERRL Neck: supple Respiratory/Chest: lungs clear, normal breath sounds, no respiratory distress Cardiovascular: regular rate, rhythm, no edema Abdomen: non tender, soft Extremities: normal inspection, no pedal edema Neurologic/Psychiatric: alert, oriented x 3 Skin: normal color, warm/dry, no rash Laboratory Results Item Value Date Time Gram Stain - Final Resulted 05/19/171954 Joint Fluid/Space (Synovial) Shoulder, Right Blood Culture - Preliminary Resulted 05/19/17 1835 Blood NO GROWTH TO DATE. Blood Culture - Preliminary Resulted 05/19/17 1820 Blood NO GROWTH TO DATE. Last 24 Hours Test 05/22/17 11:09 05/22/17 18:33 05/23/17 03:40 Sodium Level 138 mmol/L 135 mmol/L 138 mmol/L Potassium Level 3.7 mmol/L 3.7 mmol/L 3.9 mmol/L Chloride Level 106 mmol/L 102 mmol/L 105 mmol/L Carbon Dioxide Level 24 mmol/L 26 mmol/L 25 mmol/L Anion Gap 8.0 mmol/L 7.0 mmol/L 8.0 mmol/L Blood Urea Nitrogen 3 mg/dl 2 mg/dl 5 mg/dl Creatinine 0.53 mg/dl 0.99 mg/dl 0.68 mg/dl Est Creatinine Clear Calc Drug Dose 199.7 ml/min 106.9 ml/min 155.6 ml/min Estimated GFR () > 150.0 110.0 138.5 Estimated GFR (Non- 132.4 94.9 119.5 BUN/Creatinine Ratio 6.2 2.2 7.7 Random Glucose 90 mg/dl 138 mg/dl 82 mg/dl Calcium Level 8.7 mg/dl 8.4 mg/dl 8.8 mg/dl White Blood Count 5.08 K/uL Red Blood Count 3.81 M/uL Hemoglobin 12.0 g/dL Hematocrit 36.3 % Mean Corpuscular Volume 95.3 fL Mean Corpuscular Hemoglobin 31.5 pg Mean Corpuscular Hemoglobin Concent 33.1 g/dl Platelet Count 138 K/uL Mean Platelet Volume 8.5 fL Neutrophils (%) (Auto) 50.2 % Lymphocytes (%) (Auto) 26.4 % Monocytes (%) (Auto) 18.5 % Eosinophils (%) (Auto) 3.9 % Basophils (%) (Auto) 0.6 % Neutrophils # (Auto) 2.55 K/uL Lymphocytes # (Auto) 1.34 K/uL Monocytes # (Auto) 0.94 K/uL Eosinophils # (Auto) 0.20 K/uL Basophils # (Auto) 0.03 K/uL RDW Standard Deviation 46.9 fL RDW Coefficient of Variation 13.5 % Immature Granulocyte % (Auto) 0.4 % Immature Granulocyte # (Auto) 0.02 K/uL Vancomycin Level Trough 24.4 mcg/ml Assessment and Plan (1) Septic arthritis of AC joint Assessment & Plan: pt with h/o heavy etoh use and h/o + uds for meth. suspect he will need IV abx for treatment of septic arthritis and osteo but concerned about placing picc. Would suggest Dalvance 100mg x 1, then 500mg weekly after at outpt unit. He lives in [place] and states he would be able to go to infusion center there if able. Alternative would be po doxy 100mg po bid with food. Cannot use zyvox due to DDI with psych meds.
[2017-05-23] MEDS ORDERED: GABAPENTIN 600MG Q24H DOSE PO SCH (12:00)
--- NOTE | 2017-05-23 12:30 | Psychiatric Progress Notes ---
Psychiatric Progress Note Date of Service May 23, 2017. Notes 41-year-old white male with a history of alcohol dependence and anxiety disorder who is admitted to the hospitalist service with a shoulder infection and alcohol withdrawal. Psychiatry was consulted for alcohol withdrawal. He was seen by Dr. Akhtar yesterday, but was sedated, so is being seen today in follow-up. Chief complaint: "I'm doing well." Patient has continued to receive medications for alcohol withdrawal, and today is more awake and alert. He is on a Librium taper, and is also receiving as needed lorazepam. He is hypertensive. The psychiatric liaison nurse spoke with his this morning, who stated that the patient is generally an anxious person, plans out every minute of his stay, but has not had problems with depression. She has no concerns about his safety, and states that the guns in the home are locked. She states that he has been drinking a 12 pack of beer daily, for about the last year and a half. She states he has had a lot of stress due to problems with his coworkers. She is hopeful that he will stay in the hospital for at least another day. On my assessment, the patient was seen with HOLA Ortiz, which the patient consented to. He states that the weekend was "a little funny," but says he is now "feeling 100%." He admits to drinking daily for the last several years, and states that it has caused problems with his work, relationships, and legal problems in the past. He says that he plans to cut back on his alcohol intake, but doesn't plan to stop drinking. He denies symptoms of depression, reports good sleep and appetite, and says he used to have issues with anxiety, but it has been well controlled recently. He thinks the Celexa he takes is helpful. He denies SI, HI, symptoms of sharad, psychosis, OCD, and PTSD. Substance abuse history: Patient has been drinking daily for the past several years, 6-12 beers a day. He admits that history he does cause problems at work and his relationships. He denies ever having a significant period of sobriety, and has never received treatment for his alcoholism. He denies a history of withdrawal symptoms prior to this admission. He chews tobacco daily since age 17. He has a remote history of cannabis use. Past psychiatric history: Patient denies ever seeing a psychiatrist, therapist, being admitted to a psychiatric hospital, history of suicide attempts or violence towards others. He has been on Celexa for several years. Family history: Patient denies a family history of mental illness, substance abuse, and suicide. Social history: The patient grew up in [place], where he currently resides with his and 2 dogs. He has an adult stepdaughter and granddaughter. His reports good support from his parents and . 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 He has a history of DUI about 15 years ago. Review of systems: 10 systems were reviewed; all are negative except as stated above. Mental status exam: Lean white male who appears his stated age. Casually dressed and adequately groomed, seated in the bedside chair. Calm and cooperative with the interview. Good eye contact. Mild tremulousness noted. Alert and oriented. Speech is spontaneous, normal rate volume and tone. Mood is "pretty good," and affect is euthymic, stable, and congruent. Thoughts are linear and goal-directed. He denies SI, HI, hallucinations, and paranoia. Cognition is grossly intact. Insight and judgment are limited. Assessment: 1. Anxiety symptoms are well-controlled on citalopram 40 mg daily; continue it and follow-up with PCP who prescribes it. 2. Alcohol use disorder with withdrawal: Management per primary team. Would not recommend that the patient be discharged on controlled substances, due to the risk of mixing benzodiazepines with alcohol and a negative outcome. We discussed the risks of ongoing alcohol abuse, including worsening of mood and anxiety symptoms, health problems, legal issues, problems at work, and further damage to his relationships. He was encouraged to seek treatment for his substance abuse, but states that he wants to "try it on my own," and agreed to seek treatment if he is unsuccessful. Commend the primary team coordinate care with his PCP, so that he is aware of the patient's ongoing alcohol abuse, and recommend that controlled substances be avoided.
[2017-05-23] MEDS: CHLORDIAZEPOXIDE 25MG Q8H DOSE PO SCH ×2 (14:20→22:16)
[2017-05-23] MEDS: NSS + 20MEQ KCL 1000ML 1,000 ML IV SCH (16:04)
--- NOTE | 2017-05-23 17:59 | Progress Note ---
Medicine Progress Note Date & Time of Visit: May 23, 2017 at 17:58. Subjective seen with at bedside sitting on the bedside chair, oriented x 3, calm states he feels better denies shoulder pain denies confusion, tremors, hallucinations no other symptoms Objective Last 8 Hrs Date Time Temp Pulse Resp B/P (MAP) Pulse Ox O2 Delivery O2 Flow Rate FiO2 05/23/17 16:00 Room Air 05/23/17 15:09 36.6 63 16 170/95 (120) 99 Room Air 05/23/17 12:00 Room Air 05/23/17 10:47 36.5 63 20 142/87 (105) 100 Room Air Physical Exam: General- oriented x 2, not in distress, speaks in sentences with no effort Eyes-anicteric Neck- no JVD Lungs- clear breath sounds bilaterally Heart- regular rhythm; no murmur, normal rate Abdomen- normal bowel sounds, soft, nontender Extremities- (+) very mild tremors; no pretibial edema, no calf tenderness; peripheral pulses intact Right shoulder: mild edema, but no warmth/tenderness Neuro- alert, oriented x 3; no gross focal neuro deficits Skin- warm & dry Laboratory Results: Last 24 Hours Test 05/22/17 18:33 05/23/17 03:40 Sodium Level 135 mmol/L 138 mmol/L Potassium Level 3.7 mmol/L 3.9 mmol/L Chloride Level 102 mmol/L 105 mmol/L Carbon Dioxide Level 26 mmol/L 25 mmol/L Anion Gap 7.0 mmol/L 8.0 mmol/L Blood Urea Nitrogen 2 mg/dl 5 mg/dl Creatinine 0.99 mg/dl 0.68 mg/dl Est Creatinine Clear Calc Drug Dose 106.9 ml/min 155.6 ml/min Estimated GFR () 110.0 138.5 Estimated GFR (Non- 94.9 119.5 BUN/Creatinine Ratio 2.2 7.7 Random Glucose 138 mg/dl 82 mg/dl Calcium Level 8.4 mg/dl 8.8 mg/dl White Blood Count 5.08 K/uL Red Blood Count 3.81 M/uL Hemoglobin 12.0 g/dL Hematocrit 36.3 % Mean Corpuscular Volume 95.3 fL Mean Corpuscular Hemoglobin 31.5 pg Mean Corpuscular Hemoglobin Concent 33.1 g/dl Platelet Count 138 K/uL Mean Platelet Volume 8.5 fL Neutrophils (%) (Auto) 50.2 % Lymphocytes (%) (Auto) 26.4 % Monocytes (%) (Auto) 18.5 % Eosinophils (%) (Auto) 3.9 % Basophils (%) (Auto) 0.6 % Neutrophils # (Auto) 2.55 K/uL Lymphocytes # (Auto) 1.34 K/uL Monocytes # (Auto) 0.94 K/uL Eosinophils # (Auto) 0.20 K/uL Basophils # (Auto) 0.03 K/uL RDW Standard Deviation 46.9 fL RDW Coefficient of Variation 13.5 % Immature Granulocyte % (Auto) 0.4 % Immature Granulocyte # (Auto) 0.02 K/uL Vancomycin Level Trough 24.4 mcg/ml Assessment & Plan 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 Hernandez after CT on 05/13/17 Low grade temp of 37.6 C in ER, no leukocytosis, no sepsis Consult Dr. Hernandez who was contacted by ER provider- recommended joint aspiration , IV vancomycin and Rocephin Consult ortho- Dr. Scales aspirated joint in ER Blood cultures pending; synovial fluid gram stain- moderate polys, no organisms , culture pending -- remains afebrile, no leukocytosis shoulder aspirate cultures: (+) MSSA blood cultures: negative so far -- on Vanc + Ceftri day 4--> changed to Ceftriaxone IV only Day 5 ID recommendations: discharge on either Dalbavancin IV weekly vs Doxycycline 100mg po BID Ortho [facility] recommends antibiotics first, and proceed with surgery if with no improvement ALCOHOL WITHDRAWALS/DELIRIUM TREMENS -- further improved back to baseline mental status -- Lorazepam PRN per protocol Gabapentin TID Haldol PRN IV fluids -- Psych consulted, appreciate the input CHRONIC HYPONATREMIA Na+ is 126 (was low as 119 on 03/28/17 -> 126 on 04/12/17) Likely secondary to beer drinking, excess water intake, and lisinopril -- Urine Osm 221 , low -- Na 138 HOLD lisinopril on IV fluids HYPERTENSION Hold lisinopril due to hyponatremia -- metoprolol tartrate 25 mg BID -- PRN Clonidine LOOSE STOOLS Reports loose but formed stools 1-2x per day since being on antibiotics -- no diarrhea -- started Floranex ANXIETY Continue citalopram HYPERLIPIDEMIA Continue statin GERD Continue Zantac DVT PROPHYLAXIS Heparin SQ held for alcohol withdrawal ambulation encouraged, SCDs FULL CODE DISPOSITION anticipate d/c home tomorrow either PO Doxycycline or weekly IV Dalbavancin as outpatient Follows with Dr. Becerra for primary care Current Inpatient Medications: Current Inpatient Medications Medications (Trade) Dose Ordered Sig/Oksana Route Start Time Stop Time Status Last Admin Dose Admin Ondansetron HCl (Zofran Inj) 4 mg Q6H PRN IV 05/19/17 21:45 06/18/17 21:44 Metoprolol Tartrate (Lopressor Tab) 25 mg BID PO 05/20/17 09:00 06/19/17 08:59 05/23/17 08:22 25 MG Thiamine HCl (Vitamin B-1 Tab) 100 mg QAM PO 05/20/17 09:00 06/19/17 08:59 05/23/17 08:22 100 MG Ceftriaxone Sodium 1 gm/ Dextrose 50 ml @ 100 mls/hr Q24H IV 05/20/17 20:00 07/01/17 19:59 05/22/17 20:50 100 MLS/HR Citalopram Hydrobromide (celeXA TAB) 40 mg DAILY PO 05/20/17 09:00 06/19/17 08:59 05/23/17 08:22 40 MG Ibuprofen (Motrin Tab) 600 mg TID PRN PO 05/19/17 22:00 06/18/17 21:59 Pravastatin Sodium (Pravachol Tab) 40 mg HS PO 05/20/17 21:00 06/19/17 20:59 05/22/17 20:54 40 MG Ranitidine HCl (zANTac TAB) 150 mg BID PO 05/20/17 09:00 06/19/17 08:59 05/23/17 08:22 150 MG Lactobacillus Acidophilus (Floranex Tab) 4 tab TIDM PO 05/20/17 12:00 06/19/17 11:59 05/23/17 16:38 4 TAB Lorazepam (Ativan Inj) PRN Dosing -Active Protocol Q1H PRN IV 05/21/17 07:45 06/20/17 07:44 05/22/17 23:47 1 MG Potassium Chloride/Sodium Chloride 1,000 ml @ 75 mls/hr [id number] IV 05/21/17 19:00 06/20/17 18:59 05/23/17 16:04 75 MLS/HR Chlordiazepoxide (Librium Cap) 25 mg Q8H PO 05/23/17 14:00 05/24/17 06:01 05/23/17 14:20 25 MG Chlordiazepoxide (Librium Cap) 10 mg Q12H PO 05/24/17 18:00 05/25/17 06:01 Nicotine (Nicoderm Cq 14MG Patch) 1 patch QAM TD 05/22/17 09:00 06/21/17 08:59 05/23/17 08:21 1 PATCH Miscellaneous (Remove Nicoderm Patch) 1 ea HS N/A 05/21/17 21:00 06/20/17 20:59 05/22/17 21:00 1 EA Clonidine HCl (Catapres Tab) 0.1 mg Q6H PRN PO 05/21/17 11:30 06/20/17 11:29 Haloperidol Lactate (Haldol Inj) 5 mg Q6H PRN IM 05/21/17 18:30 06/20/17 18:29 Gabapentin (Neurontin Tab) 600 mg TID PO 05/21/17 19:30 06/20/17 19:29 05/23/17 14:19 600 MG Lorazepam 1 mg/ Syringe 1 ml @ 1 mls/min Q2H PRN IV 05/22/17 08:45 06/20/17 14:29
[2017-05-23] MEDS: CEFTRIAXONE SOD INJ 1 GM in DEXTROSE 5% ADD-VANTAGE 50ML 50 ML IV SCH (19:43)
[2017-05-23] MEDS: PRAVASTATIN SOD 40 MG TAB PO SCH (19:43)
[2017-05-24 03:24] VITALS: BP 132/79; PULSE 62; TEMP 36.2; O2SAT 99
[2017-05-24] MEDS: NSS + 20MEQ KCL 1000ML 1,000 ML IV SCH (04:58)
[2017-05-24] MEDS: CHLORDIAZEPOXIDE 25MG Q8H DOSE PO SCH (06:20)
[2017-05-24 07:14] VITALS: BP 144/91; PULSE 57; TEMP 36.5; O2SAT 100
[2017-05-24 07:40] LABS: BASO % 1.1 %; BASO ABS # 0.05 K/uL (0-0.2); COMPLETE YES; EOS % 3.6 %; HEMATOCRIT 37.2 % (42-52); IG% 0.2 %; LYMPH % 32.1 %; LYMPH ABS # 1.43 K/uL (1.2-3.4); MEAN CELL VOLUME 94.4 fL (80-100); MEAN CORPUSCULAR HEMOGLOBIN 32.2 pg (25-34); MEAN CORPUSCULAR HGB CONC 34.1 g/dl (32-36); MEAN PLATELET VOLUME 8.7 fL (7.4-10.4); MONO % 20.4 %; NEUT % 42.6 %; PLATELET COUNT 167 K/uL (130-400); RED BLOOD COUNT 3.94 M/uL (4.7-6.1); WHITE BLOOD COUNT 4.45 K/uL (4.8-10.8)
[2017-05-24] MEDS: CITALOPRAM 40 MG TAB PO SCH (08:01)
[2017-05-24] MEDS: GABAPENTIN 600 MG TAB PO SCH ×2 (08:01→14:25)
[2017-05-24] MEDS: LACTOBACILLUS ACIDOPHILUS (FLORANEX) TAB PO SCH ×2 (08:02→11:52)
[2017-05-24] MEDS: THIAMINE HCL 100 MG TAB PO SCH (08:03)
[2017-05-24] MEDS: METOPROLOL TARTRATE 25 MG TAB PO SCH (08:03)
[2017-05-24] MEDS: RANITIDINE HCL 150 MG TAB PO SCH (08:03)
[2017-05-24] MEDS: NICOTINE 14 MG/24 HR TDSY TD SCH (08:04)
[2017-05-24 08:13] LABS: BUN/CREATININE RATIO 6.1 (10-20); CALCIUM 9.2 mg/dl (8.5-10.1); CREATININE 0.74 mg/dl (0.60-1.40); POTASSIUM 3.6 mmol/L (3.5-5.1)
[2017-05-24 10:42] VITALS: BP 145/86; PULSE 61; TEMP 36.5; O2SAT 100
--- NOTE | 2017-05-24 14:56 | Progress Note ---
Subjective Date of Service: May 24, 2017. Subjective tolerating abx. blood cultures remain negative, afebrile. wound culture with MSSA. RX for etoh withdrawal ongoing. no overnight events. Problem List Medical Problems: (1) Abscess of shoulder Status: Acute (2) Elevated blood pressure reading Status: Acute (3) Hyponatremia Status: Acute (4) Septic arthritis of AC joint Status: Acute Objective Vital Signs Date Time Temp Pulse Resp B/P (MAP) Pulse Ox O2 Delivery O2 Flow Rate FiO2 05/24/17 12:00 Room Air 05/24/17 10:42 36.5 61 18 145/86 (105) 100 Room Air 05/24/17 08:00 Room Air 05/24/17 07:14 36.5 57 20 144/91 (108) 100 Room Air 05/24/17 04:00 Room Air 05/24/17 03:24 36.2 62 21 132/79 (96) 99 Room Air 05/24/17 00:01 Room Air 05/23/17 23:14 36.3 57 20 146/87 (106) 100 Room Air 05/23/17 20:01 36.4 67 18 150/94 (112) 100 Room Air 05/23/17 20:00 Room Air 05/23/17 16:00 Room Air 05/23/17 15:09 36.6 63 16 170/95 (120) 99 Room Air Laboratory Results Item Value Date Time Gram Stain - Final Resulted 05/19/171954 Joint Fluid/Space (Synovial) Shoulder, Right Blood Culture - Preliminary Resulted 05/19/17 183 Blood NO GROWTH TO DATE. Blood Culture - Preliminary Resulted 05/19/17 1820 Blood NO GROWTH TO DATE. Gram Stain - Final Complete 05/19/171954 Joint Fluid/Space (Synovial) Shoulder, Right Last 24 Hours Test 05/24/17 07:02 White Blood Count 4.45 K/uL Red Blood Count 3.94 M/uL Hemoglobin 12.7 g/dL Hematocrit 37.2 % Mean Corpuscular Volume 94.4 fL Mean Corpuscular Hemoglobin 32.2 pg Mean Corpuscular Hemoglobin Concent 34.1 g/dl Platelet Count 167 K/uL Mean Platelet Volume 8.7 fL Neutrophils (%) (Auto) 42.6 % Lymphocytes (%) (Auto) 32.1 % Monocytes (%) (Auto) 20.4 % Eosinophils (%) (Auto) 3.6 % Basophils (%) (Auto) 1.1 % Neutrophils # (Auto) 1.89 K/uL Lymphocytes # (Auto) 1.43 K/uL Monocytes # (Auto) 0.91 K/uL Eosinophils # (Auto) 0.16 K/uL Basophils # (Auto) 0.05 K/uL RDW Standard Deviation 46.9 fL RDW Coefficient of Variation 13.5 % Immature Granulocyte % (Auto) 0.2 % Immature Granulocyte # (Auto) 0.01 K/uL Sodium Level 138 mmol/L Potassium Level 3.6 mmol/L Chloride Level 103 mmol/L Carbon Dioxide Level 26 mmol/L Anion Gap 9.0 mmol/L Blood Urea Nitrogen 5 mg/dl Creatinine 0.74 mg/dl Est Creatinine Clear Calc Drug Dose 141.1 ml/min Estimated GFR () 133.7 Estimated GFR (Non- 115.4 BUN/Creatinine Ratio 6.1 Random Glucose 79 mg/dl Calcium Level 9.2 mg/dl Assessment and Plan (1) Septic arthritis of AC joint Assessment & Plan: pt with h/o heavy etoh use and h/o + uds for meth. suspect he will need IV abx for treatment of septic arthritis and osteo but concerned about placing picc. Would suggest Dalvance 100mg x 1, then 500mg weekly after at outpt unit. He lives in [place] and states he would be able to go to infusion center there if able. Unclear if [place] will be able to arrange this. Unclear if he has transportation to [facility] for infusions with eventual transition to po abx. Spoke with primary, will attempt to arrange for Dalvance if able by insurance and has transportation, otherwise will d/c on po abx with plan to follow as outpt. Alternative would be po doxy 100mg po bid with food. Cannot use zyvox due to DDI with psych meds.
[2017-05-24 16:50] VITALS: BP 145/86; PULSE 61; TEMP 36.5; O2SAT 100
--- NOTE | 2017-05-24 17:00 | Progress Note ---
Medicine Progress Note Date & Time of Visit: May 24, 2017 at 16:45. Subjective patient seen sitting in bedside chair states he feels fine overall denies tremors, hallucinations, sweating, confusion denies shoulder pain, fever/chills eating well, walking with no problems states he is ready and would like to be discharged today Objective Last 8 Hrs Date Time Temp Pulse Resp B/P (MAP) Pulse Ox O2 Delivery O2 Flow Rate FiO2 05/24/17 12:00 Room Air 05/24/17 10:42 36.5 61 18 145/86 (105) 100 Room Air Physical Exam: General- oriented x 2, not in distress, speaks in sentences with no effort Neck- no JVD Lungs- clear breath sounds bilaterally, no rales/wheezes Heart- regular rhythm; no murmur, normal rate Abdomen- normal bowel sounds, soft, nontender Extremities-no tremors no pretibial edema, no calf tenderness; peripheral pulses intact Right shoulder: no edema, but no warmth/tenderness Neuro- alert, oriented x 3; no gross focal neuro deficits Skin- warm & dry Laboratory Results: Last 24 Hours Test 05/24/17 07:02 White Blood Count 4.45 K/uL Red Blood Count 3.94 M/uL Hemoglobin 12.7 g/dL Hematocrit 37.2 % Mean Corpuscular Volume 94.4 fL Mean Corpuscular Hemoglobin 32.2 pg Mean Corpuscular Hemoglobin Concent 34.1 g/dl Platelet Count 167 K/uL Mean Platelet Volume 8.7 fL Neutrophils (%) (Auto) 42.6 % Lymphocytes (%) (Auto) 32.1 % Monocytes (%) (Auto) 20.4 % Eosinophils (%) (Auto) 3.6 % Basophils (%) (Auto) 1.1 % Neutrophils # (Auto) 1.89 K/uL Lymphocytes # (Auto) 1.43 K/uL Monocytes # (Auto) 0.91 K/uL Eosinophils # (Auto) 0.16 K/uL Basophils # (Auto) 0.05 K/uL RDW Standard Deviation 46.9 fL RDW Coefficient of Variation 13.5 % Immature Granulocyte % (Auto) 0.2 % Immature Granulocyte # (Auto) 0.01 K/uL Sodium Level 138 mmol/L Potassium Level 3.6 mmol/L Chloride Level 103 mmol/L Carbon Dioxide Level 26 mmol/L Anion Gap 9.0 mmol/L Blood Urea Nitrogen 5 mg/dl Creatinine 0.74 mg/dl Est Creatinine Clear Calc Drug Dose 141.1 ml/min Estimated GFR () 133.7 Estimated GFR (Non- 115.4 BUN/Creatinine Ratio 6.1 Random Glucose 79 mg/dl Calcium Level 9.2 mg/dl Assessment & Plan 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 Hernandez after CT on 05/13/17 Low grade temp of 37.6 C in ER, no leukocytosis, no sepsis Consult Dr. Hernandez who was contacted by ER provider- recommended joint aspiration , IV vancomycin and Rocephin Consult ortho- Dr. Scales aspirated joint in ER Blood cultures pending; synovial fluid gram stain- moderate polys, no organisms , culture pending -- remained afebrile, no leukocytosis shoulder aspirate cultures: (+) MSSA blood cultures: negative so far -- on Vanc + Ceftri--> changed to Ceftriaxone IV only Day 6 ID recommendations: discharge on either Dalbavancin IV weekly vs Doxycycline 100mg po BID patient prefers Doxycycline- 100mg BID x 6 weeks Ortho [facility] recommends antibiotics first, and proceed with surgery if with no improvement -- ff up with PCP in 3-5 days ff up with ID in 1 week ff up with Ortho in 1 week ALCOHOL WITHDRAWALS/DELIRIUM TREMENS -- further improved back to baseline mental status -- Lorazepam PRN per protocol , Haldol PRN Gabapentin TID, taper on discharge -- Psych consulted patient has declined referral to Rehab advised to abstain from Alcohol, if he were to drink alcohol, wait for 2-3 days CHRONIC HYPONATREMIA Na+ is 126 (was low as 119 on 03/28/17 -> 126 on 04/12/17) Likely secondary to beer drinking, excess water intake, and lisinopril -- Urine Osm 221 , low -- Na 138 HOLD lisinopril -- repeat Na as outpatient HYPERTENSION Hold lisinopril due to hyponatremia -- metoprolol tartrate 25 mg BID add Amlodipine 5mg po daily -- PRN Clonidine LOOSE STOOLS Reports loose but formed stools 1-2x per day since being on antibiotics -- no diarrhea -- started Floranex ANXIETY Continue citalopram HYPERLIPIDEMIA Continue statin GERD Continue Zantac DVT PROPHYLAXIS Heparin SQ held for alcohol withdrawal ambulation encouraged, SCDs FULL CODE DISPOSITION d/c home today ff up with PCP in 3-5 days ff up with ID and Ortho in 1 week Current Inpatient Medications: Current Inpatient Medications Medications (Trade) Dose Ordered Sig/Oksana Route Start Time Stop Time Status Last Admin Dose Admin Ondansetron HCl (Zofran Inj) 4 mg Q6H PRN IV 05/19/17 21:45 06/18/17 21:44 Metoprolol Tartrate (Lopressor Tab) 25 mg BID PO 05/20/17 09:00 06/19/17 08:59 05/23/17 19:43 25 MG Thiamine HCl (Vitamin B-1 Tab) 100 mg QAM PO 05/20/17 09:00 06/19/17 08:59 05/24/17 08:03 100 MG Ceftriaxone Sodium 1 gm/ Dextrose 50 ml @ 100 mls/hr Q24H IV 05/20/17 20:00 07/01/17 19:59 05/23/17 19:43 100 MLS/HR Citalopram Hydrobromide (celeXA TAB) 40 mg DAILY PO 05/20/17 09:00 06/19/17 08:59 05/24/17 08:01 40 MG Ibuprofen (Motrin Tab) 600 mg TID PRN PO 05/19/17 22:00 06/18/17 21:59 Pravastatin Sodium (Pravachol Tab) 40 mg HS PO 05/20/17 21:00 06/19/17 20:59 05/23/17 19:43 40 MG Ranitidine HCl (zANTac TAB) 150 mg BID PO 05/20/17 09:00 06/19/17 08:59 05/24/17 08:03 150 MG Lactobacillus Acidophilus (Floranex Tab) 4 tab TIDM PO 05/20/17 12:00 06/19/17 11:59 05/24/17 11:52 4 TAB Lorazepam (Ativan Inj) PRN Dosing -Active Protocol Q1H PRN IV 05/21/17 07:45 06/20/17 07:44 05/22/17 23:47 1 MG Potassium Chloride/Sodium Chloride 1,000 ml @ 75 mls/hr [id number] IV 05/21/17 19:00 06/20/17 18:59 05/24/17 04:58 75 MLS/HR Chlordiazepoxide (Librium Cap) 10 mg Q12H PO 05/24/17 18:00 05/25/17 06:01 Nicotine (Nicoderm Cq 14MG Patch) 1 patch QAM TD 05/22/17 09:00 06/21/17 08:59 05/23/17 08:21 1 PATCH Miscellaneous (Remove Nicoderm Patch) 1 ea HS N/A 05/21/17 21:00 06/20/17 20:59 05/22/17 21:00 1 EA Clonidine HCl (Catapres Tab) 0.1 mg Q6H PRN PO 05/21/17 11:30 06/20/17 11:29 Haloperidol Lactate (Haldol Inj) 5 mg Q6H PRN IM 05/21/17 18:30 06/20/17 18:29 Gabapentin (Neurontin Tab) 600 mg TID PO 05/21/17 19:30 06/20/17 19:29 05/24/17 14:25 600 MG
[2017-05-24] MEDS ORDERED: DXY100 PO (17:03)
[2017-05-24] MEDS ORDERED: LPR25 PO (17:03)
[2017-05-24] MEDS ORDERED: NRN600 PO (17:05)
--- NOTE | 2017-05-24 17:10 | Discharge Instructions ---
Discharge Instructions Date of Service May 24, 2017. Admission Reason for Admission: Abscess Of Shoulder Discharge Discharge Diagnosis / Problem: ABSCESS OF THE RIGHT SHOULDER Discharge Goals Goal(s): Diagnostic testing, Therapeutic intervention Activity Recommendations Activity Limitations: as noted below (INCREASE ACTIVITY GRADUALLY TOLERATED) Lifting Limitations: until after follow-up appointment Exercise/Sports Limitations: until after follow-up appointment Driving or Machine Use: UNTIL AFTER FOLLOW UP APPOINTMENT WITH PRIMARY CARE PHYSICIAN . Instructions / Follow-Up Instructions / Follow-Up PLEASE REVIEW YOUR NEW MEDICATION LIST AND FOLLOW INSTRUCTIONS CAREFULLY. TAKE PROBIOTICS DAILY AND AT LEAST 1 WEEK AFTER FINISHING ANTIBIOTIC COURSE. CALL PRIMARY CARE PHYSICIAN OR RETURN TO ER IMMEDIATELY IF WITH RECURRENCE OF SYMPTOMS, WORSENING SHOULDER PAIN/SWELLING/REDNESS, FEVER/CHILLS, NAUSEA, WEAKNESS. FOLLOW UP WITH DR. MERCADO ON Tuesday05/27/17 AT 10:15AM. FOLLOW UP WITH INFECTIOUS DISEASE CLINIC DR. VELEZ IN 1 WEEK. TEL. [phone] FOLLOW UP WITH ORTHOPEDIC SURGEON DR. FLORENCE IN 1 WEEK. TEL NO. Current Hospital Diet Patient's current hospital diet: Regular Diet Discharge Diet Recommended Diet: AHA Diet (Heart Healthy) Procedures Procedures Performed: ASPIRATION OF RIGHT SHOULDER Pending Studies Studies pending at discharge: no Medical Emergencies . Who to Call and When: Medical Emergencies: If at any time you feel your situation is an emergency, please call 911 immediately. . Non-Emergent Contact Non-Emergency issues call your: Primary Care Provider, Surgeon Call Non-Emergent contact if: you have a fever, your pain is not controlled, your pain is worsening, wound has increased drainage, wound has increased redness, wound has increased pain, you have any medication questions . . "Provider Documentation" section prepared by Quentin Saini. . VTE Core Measure Inpt VTE Proph given/why not?: Unfractionated heparin SQ
[2017-05-24] MEDS ORDERED: CHLORDIAZEPOXIDE 10MG Q12H DOSE PO SCH (18:00)
--- NOTE | 2017-05-25 23:18 | Discharge Summary ---
Discharge Summary Date of Service May 25, 2017. 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 Procedures: CT OF THE RIGHT SHOULDER WITH CONTRAST CLINICAL HISTORY: Septic arthritis of shoulder. Evaluate for abscess. COMPARISON STUDY: Right shoulder radiographs March 25, 2017. TECHNIQUE: Axial images of the right shoulder were obtained following intravenous injection of 120 cc of Optiray 320 IV. Sagittal and coronal reconstructions were viewed. FINDINGS: Visualized portions of the right lung are clear. There is no significant abnormality of the right glenohumeral joint by CT. Note is made of bony erosion of the distal right clavicle and the adjacent acromion suggestive of osteomyelitis. This has developed since radiographs of March 25, 2017. There is adjacent infiltration. Note is made of a rim-enhancing 2 cm x 1.1 cm fluid collection located anterior superior to the acromioclavicular joint. This is located within the clavicular part of the right deltoid muscle. A small rim-enhancing fluid collection is noted within the acromioclavicular joint as well. There is no evidence for a glenohumeral joint effusion. IMPRESSION: Septic arthritis of the right acromioclavicular joint with osteomyelitis of the distal right clavicle and adjacent acromion. Associated periarticular 2 cm x 1 cm intramuscular abscess within the deltoid muscle, located anterior superior to the acromioclavicular joint. Additional smaller periarticular abscess and small intra-articular abscess. Associated soft tissue swelling. Discussed with Dr. Hernandez at time of dictation. Consultations: ORTHOPEDICS DR. SCALES, ID DR. VELEZ, PSYCHIATRY DR. CROSS Pending Studies/Follow-Up: PLEASE REFER TO HOSPITAL COURSE BELOW. Medication Reconciliation New Medications: Doxycycline Hyclate (Doxycycline Hyclate) 100 Mg Cap 1 TAB PO BID for 42 Days, #84 CAP 0 Refills Gabapentin (Gabapentin) 600 Mg Tab 1 TAB PO UD for 2 Days, #3 TABS 0 Refills take 1 tab po BID on 05/25/17, then then 1 tab po once on 05/26/17, then STOP Metoprolol Tartrate (Lopressor) 25 Mg Tab 25 MG PO BID for 30 Days, #60 TAB 2 Refills Continued Medications: Citalopram (Citalopram Hydrobromide) 40 Mg Tab 40 MG PO DAILY Ibuprofen (Ibuprofen) 600 Mg Tab 600 MG PO TID PRN for Pain Pravastatin Sod (Pravastatin Sodium) 40 Mg Tab 40 MG PO HS Ranitidine Hcl (Zantac) 150 Mg Tab 150 MG PO BID Discontinued Medications: Lisinopril (Zestril) 40 Mg Tab 40 MG PO DAILY Sulfa/Trimethoprim (Bactrim Ds 800MG/160MG) Tab 1 TAB PO BID, #14 TAB Admission Information HPI (per Admitting provider): This is a 41 y/o male with PMH of HTN, HL, anxiety, alcohol use, hyponatremia, and other problems listed below who presents to the ED for right shoulder infection. 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 No skin puncture/ open wound. Has been seen by PCP (03/16- given prednisone course), [facility] (03/25 after joint became red, hot and swollen - treated with Rocephin injection then PO Bactrim and Keflex course for cellulitis), [facility] (03/28- noted to have severe hyponatremia, blood alcohol of 40, drug screen + for amphetamines), [facility], and Dr. Hernandez (prescribed Bactrim). Patient had a CT scan on Tuesday which showed R shoulder abscess. Pt states erythema and swelling improved with initial antibiotics, but symptoms returned. He is currently taking Bactrim prescribed by Dr. Hernandez with partial improvement. He had fever/chills weeks ago (Tmax 101 F) , but not over past several days. Pain is controlled. Taking ibuprofen PRN at home. He states stool is loose but formed 1-2x per day since being on antibiotics. He felt anxious on presentation to ER which improved with IV Ativan. Patient drinks 6 beers per day. He reports excess water intake which he is trying to cut down on and replace with Gatorade. He is eating well and trying to increase sodium intake. He denies dizziness, tremor, numbness, weakness, chest pain, SOB, abdominal pain, N/V, UTI symptoms. No hx of shoulder surgery. Denies hx of alcohol withdrawal or seizure. Physical Exam (per Admitting): General Appearance: WD/WN, no apparent distress, + pertinent finding (alert cooperative 41 year old male, lying in bed, at bedside) Head: normocephalic, atraumatic Eyes: PERRL, sclerae normal ENT: hearing grossly normal, pharynx normal Neck: supple, trachea midline Respiratory/Chest: lungs clear, normal breath sounds, no respiratory distress, no accessory muscle use Cardiovascular: regular rate, rhythm, no murmur Abdomen/GI: normal bowel sounds, non tender, soft Extremities/Musculoskelatal: no calf tenderness, no pedal edema, + pertinent finding (no pain with passive rotation of R shoulder. R shoulder adduction and abduction 5/5) Neurologic/Psych: alert, normal mood/affect, oriented x 3, + pertinent finding (sensation to light touch grossly intact RUE. no tremor. ) Skin: normal color, warm/dry, + pertinent finding (right shoulder dressing in place s/p joint aspiration. no significant erythema or swelling extending past the dressing. ) Hospital Course 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 Hernandez after CT on 05/13/17 Low grade temp of 37.6 C in ER, no leukocytosis, no sepsis Consult Dr. Hernandez who was contacted by ER provider- recommended joint aspiration , IV vancomycin and Rocephin Consult ortho- Dr. Scales aspirated joint in ER -- remained afebrile, no leukocytosis shoulder aspirate cultures: (+) MSSA blood cultures: negative so far -- on Vanc + Ceftri--> changed to Ceftriaxone IV only Day 6 ID recommendations: discharge on either Dalbavancin IV weekly vs Doxycycline 100mg po BID patient prefers Doxycycline- 100mg BID x 6 weeks Ortho [facility] [place] recommends antibiotics first, and proceed with surgery if with no improvement -- ff up with PCP in 3-5 days ff up with ID in 1 week ff up with Ortho in 1 week ALCOHOL WITHDRAWALS/DELIRIUM TREMENS -- patient developed worsening withdrawal symptoms/DTs on hospital day 3 required PRN Haldol and Ativan back to baseline mental status the next day -- Psych consulted given Lorazepam PRN per protocol , Haldol PRN Gabapentin TID patient has declined referral to Rehab advised to abstain from Alcohol- explained medical consequences; if he were to drink alcohol again, wait for 2-3 days upon discharge CHRONIC HYPONATREMIA Na+ is 126 on admission Likely secondary to beer drinking, excess water intake, and lisinopril -- Urine Osm 221 , low -- Lisinpril held, Na [id number] -- repeat Na as outpatient HYPERTENSION Hold lisinopril due to hyponatremia -- started metoprolol tartrate 25 mg BID -- monitor BP as outpatient ANXIETY Continue citalopram HYPERLIPIDEMIA Continue statin GERD Continue Zantac DISPOSITION d/c home ff up with PCP in 3-5 days ff up with ID and Ortho in 1 week Total time spent on discharge = 40 MINUTES This includes examination of the patient, discharge planning, medication reconciliation, and communication with other providers. Discharge Instructions Discharge Instructions Date of Service May 24, 2017. Admission Reason for Admission: Abscess Of Shoulder Discharge Discharge Diagnosis / Problem: ABSCESS OF THE RIGHT SHOULDER Discharge Goals Goal(s): Diagnostic testing, Therapeutic intervention Activity Recommendations Activity Limitations: as noted below (INCREASE ACTIVITY GRADUALLY TOLERATED) Lifting Limitations: until after follow-up appointment Exercise/Sports Limitations: until after follow-up appointment Driving or Machine Use: UNTIL AFTER FOLLOW UP APPOINTMENT WITH PRIMARY CARE PHYSICIAN . Instructions / Follow-Up Instructions / Follow-Up PLEASE REVIEW YOUR NEW MEDICATION LIST AND FOLLOW INSTRUCTIONS CAREFULLY. TAKE PROBIOTICS DAILY AND AT LEAST 1 WEEK AFTER FINISHING ANTIBIOTIC COURSE. CALL PRIMARY CARE PHYSICIAN OR RETURN TO ER IMMEDIATELY IF WITH RECURRENCE OF SYMPTOMS, WORSENING SHOULDER PAIN/SWELLING/REDNESS, FEVER/CHILLS, NAUSEA, WEAKNESS. FOLLOW UP WITH DR. MERCADO ON Tuesday05/27/17 AT 10:15AM. FOLLOW UP WITH INFECTIOUS DISEASE CLINIC DR. VELEZ IN 1 WEEK. TEL. [phone] FOLLOW UP WITH ORTHOPEDIC SURGEON DR. SCALES IN 1 WEEK. TEL NO. Current Hospital Diet Patient's current hospital diet: Regular Diet Discharge Diet Recommended Diet: AHA Diet (Heart Healthy) Procedures Procedures Performed: ASPIRATION OF RIGHT SHOULDER Pending Studies Studies pending at discharge: no
== END 2017-05-24 17:00 | disposition home or self-care (01) | DRG 549 ==
LOC: C.EDB 17:08 → C.MED 21:42 → ENRESERV 22:04 → C.2T 05-21 18:24 → ENRESERV 05-21 18:48
PROVIDERS: ADMIT Hospitalist; ATTEND Internal Medicine
PROC: 0R9 Upper Joints, Drainage (ICD-10-PCS; principal; 2017-05-19)
DX: M00.9 Pyogenic arthritis, unspecified (principal); E87.1 Hypo-osmolality and hyponatremia; M86.9 Osteomyelitis, unspecified; F10.231 Alcohol dependence with withdrawal delirium; B95.61 Methicillin susceptible Staphylococcus aureus infection as the cause of diseases classified elsewhere; K21.9 Gastro-esophageal reflux disease without esophagitis; E78.5 Hyperlipidemia, unspecified; I10 Essential (primary) hypertension; F41.9 Anxiety disorder, unspecified; Z79.899 Other long term (current) drug therapy